=== PATIENT | female | born 2000 | race Caucasian/White ===

== ENCOUNTER 2022-11-29 19:24 | Outpatient (OUT) | payer BC, SELFPAY ==
[2022-12-04 14:20] LABS: Age Gdln ACOG Testing Note (.); IGP, rfx Aptima HPV ASCU Note (.)
== END 2022-11-29 19:25 | disposition home or self-care (01) ==
PROVIDERS: PCP Family Medicine; Visit Provider Physician Assistant
DX: Z12.4 Encounter for screening for malignant neoplasm of cervix (principal); Z11.51 Encounter for screening for human papillomavirus (HPV)
CPT/HCPCS: G0145

== ENCOUNTER 2023-01-25 10:33 | Outpatient (OUT) | payer BC, SELFPAY ==
--- NOTE | 2023-01-25 10:37 | US_ITS ---
[address] [address] Patient Name: INDIO DICKEY MRN: [id number] date: 2000 Sex: F Assigned Patient Location: US Current Patient Location: LAB Accession/Order Number: [id number] Exam Date: 01/25/2023 10:37 Report Date: 01/25/2023 17:43 At the request of: FADUMO THEODORE Procedure: US OB transvaginal EXAMINATION: US OB transvaginal HISTORY: MISSED MENSES COMPARISON: No relevant comparison available. FINDINGS: Transvaginal images Anechoic echogenicity within the endometrial cavity measuring 1.2 x 1.6 x 1.7 cm. Mean sac diameter of 1.51 cm, 5 weeks 6 days CRL: 2.8 mm, 5 weeks 6 days Yolk sac: 4.1 mm, elongated Cardiac activity: Not visualized Cervix: Closed, 3.9 cm The uterus is normal, anteverted, anteflexed The ovaries are normal in appearance Clinical age: 13 weeks 1 day Clinical TERESA: 08/01/2023 Ultrasound age: 5 weeks 6 days Ultrasound TERESA: 09/21/2023 US/US OB transvaginal IMPRESSION: Abnormal yolk sac with no cardiac activity. Consider early intrauterine gestation. Follow-up is recommended Electronically authenticated by: VISHAL ALBERTS Date: 01/25/2023 17:43
== END 2023-01-25 10:34 | disposition home or self-care (01) ==
LOC: US 10:34
PROVIDERS: PCP Family Medicine; Visit Provider Obstetrics & Gynecology
DX: N91.2 Amenorrhea, unspecified (principal); N92.6 Irregular menstruation, unspecified
CPT/HCPCS: 36415; 76817; 84702

== ENCOUNTER 2023-01-25 11:22 | Outpatient (RCR) | payer BC, SELFPAY ==
[2023-01-25 12:49] LABS: HCG Quantitative 30128 mIU/mL
[2023-01-28 13:48] LABS: HCG Quantitative 24190 mIU/mL
== END 2023-02-11 08:32 | disposition home or self-care (01) ==
LOC: LAB 11:22
PROVIDERS: Visit Provider Obstetrics & Gynecology
DX: N91.2 Amenorrhea, unspecified (principal)
CPT/HCPCS: 36415; 84702

== ENCOUNTER 2023-01-30 13:52 | Outpatient (OUT) | payer BC, SELFPAY ==
--- NOTE | 2023-01-30 13:55 | US_ITS ---
The [address] [address] Patient Name: INDIO DICKEY MRN: [id number] date: 2000 Sex: F Assigned Patient Location: US Current Patient Location: US Accession/Order Number: [id number] Exam Date: 01/30/2023 13:56 Report Date: 01/30/2023 15:34 At the request of: FADUMO SOLORIO Procedure: US OB transvaginal EXAMINATION: US OB transvaginal HISTORY: VIABILITY , bleeding, decreased beta hCG COMPARISON: Ultrasound OB transvaginal 01/25/2023 FINDINGS: GESTATIONAL SAC: Present YOLK SAC: Present POLE: Present CARDIAC: Absent UTERUS: Normal size and appearance. OVARIES: Right: Normal. Left: Normal. CERVIX: 4.0 cm in length and closed. CUL-DE-SAC: Normal. OTHER: None. AGE BY LMP: 13 weeks 6 days TERESA BY LMP: 08/01/2023 AGE BY US CRL: 6 weeks 0 days TERESA BY US CRL: 09/25/2023 US/US OB transvaginal IMPRESSION: 1. Intrauterine with no detectable heartbeat or interval growth; findings consistent with demise. Dr. Solorio was notified of these findings by the network cable installer at time of imaging. Electronically authenticated by: LORETTA HENRY Date: 01/30/2023 15:34
== END 2023-01-30 13:53 | disposition home or self-care (01) ==
LOC: US 13:52
PROVIDERS: Visit Provider Obstetrics & Gynecology
DX: N92.6 Irregular menstruation, unspecified (principal)
CPT/HCPCS: 76817

== ENCOUNTER 2023-02-01 07:05 | Day surgery (SDC) | payer BC, SELFPAY ==
[2023-02-01] VITALS (8 sets, daily range): BP systolic 114–134; BP diastolic 71–99; PULSE 72–106; RESP 12–18; TEMP 36.3–36.7; O2SAT 96–100; BMI 31.5
[2023-02-01] MEDS: LACTATED RINGER'S SOLUTION 1,000 ML 50 ML IV (07:31)
[2023-02-01 07:34] LABS: Basophils Percent Auto 0.4 % (0.2-2.0); Eosinophils Absolute Auto 0.1 10^3/uL (0.0-0.7); Eosinophils Percent Auto 1.3 % (0.9-7.0); Hematocrit 36.3 % (36.0-48.0); Hemoglobin 12.2 g/dL (12.0-16.0); Immature Granulocytes Abs Auto 0.04 10^3/uL (0.00-0.03); Immature Granulocytes Pct Auto 0.4 % (0.0-0.5); Lymphocytes Absolute Auto 2.8 10^3/uL (1.2-3.8); Lymphocytes Percent Auto 26.9 % (20.5-60.0); Mean Corpuscular HGB Conc 33.6 g/dL (29.9-35.2); Mean Corpuscular Volume 86.4 fL (81.0-99.0); Mean Platelet Volume 9.4 fL (9.5-13.5); Monocytes Absolute Auto 0.8 10^3/uL (0.3-0.8); Monocytes Percent Auto 7.3 % (1.7-12.0); Neutrophils Absolute Auto 6.6 10^3/uL (1.4-6.5); Neutrophils Percent Auto 63.7 % (43.0-75.0); Platelet Count 250 10^3/uL (150-450); Red Cell Distribution Width 11.9 % (11.0-15.0); White Blood Count 10.4 10^3/uL (4.0-11.0)
[2023-02-01 08:06] LABS: HCG Quantitative 21399 mIU/mL
--- NOTE | 2023-02-01 09:09 | PM.ONB ---
Brief Operative Note Date of procedure: 02/01/23 Pre-op diagnosis: missed first trimester Post-op diagnosis: same as pre-op Procedure: NAME OF PROCEDURE: [D&C suction ] PROCEDURE: The patient was taken back to the OR where she was given general anesthesia without difficulty. She was then placed in dorsal lithotomy position, prepped and draped in the normal sterile fashion. A weighted speculum was placed in the patient's vagina and the anterior lip of the cervix was identified and grasped with a single-tooth tenaculum. The patient was then gently dilated using Hegar dilators after we had sounded roughly to 10 cm. The suction curette was then tested. The suction curette was then placed in the patient's uterus and products of conception were removed using an 9-Surinamese suction curette. ?Excellent hemostasis was noted. The patient tolerated the procedure well. Sponge, lap, and needle counts were correct x 2. All instruments were then removed from the patient's vagina. The patient was taken to the Recovery Room in stable condition. ?? Anesthesia: SALVADOR Surgeon: Enoch Solorio Estimated blood loss (mL): 25 Pathology: other (products of conception) Condition: stable Disposition: PACU
--- NOTE | 2023-02-01 09:30 | PC.NURSE ---
[facility] dry; teary eyed
--- NOTE | 2023-02-01 09:33 | PC.NURSE ---
[facility] dry; remains teary eyes
[2023-02-01] MEDS: LACTATED RINGER'S SOLUTION 1,000 ML 150 ML IV (09:47)
--- NOTE | 2023-02-01 09:51 | PC.NURSE ---
[facility] dry; remains teary eyed; at bedside
== END 2023-02-01 10:07 | disposition home or self-care (01) ==
PROVIDERS: Visit Provider Obstetrics & Gynecology
PROC: (CPT 59820; principal; 2023-02-01 08:30)
DX: O02.1 Missed abortion (principal); I10 Essential (primary) hypertension; F41.9 Anxiety disorder, unspecified; F42.9 Obsessive-compulsive disorder, unspecified; Z90.49 Acquired absence of other specified parts of digestive tract
CPT/HCPCS: 59820; 36415; 84702; 85025; 86850; 86900; 86901; 88305; J2704

== ENCOUNTER 2023-07-04 12:51 | Outpatient (OUT) | payer BC, SELFPAY ==
[2023-07-04 13:40] LABS: Basophils Percent Auto 0.3 % (0.2-2.0); Eosinophils Absolute Auto 0.1 10^3/uL (0.0-0.7); Eosinophils Percent Auto 0.8 % (0.9-7.0); Hematocrit 37.1 % (36.0-48.0); Hemoglobin 12.4 g/dL (12.0-16.0); Immature Granulocytes Abs Auto 0.02 10^3/uL (0.00-0.03); Immature Granulocytes Pct Auto 0.3 % (0.0-0.5); Lymphocytes Absolute Auto 2.7 10^3/uL (1.2-3.8); Mean Corpuscular HGB Conc 33.4 g/dL (29.9-35.2); Mean Corpuscular Hemoglobin 27.9 pg (26.7-34.0); Mean Corpuscular Volume 83.6 fL (81.0-99.0); Mean Platelet Volume 9.6 fL (9.5-13.5); Monocytes Absolute Auto 0.6 10^3/uL (0.3-0.8); Monocytes Percent Auto 7.2 % (1.7-12.0); Neutrophils Absolute Auto 4.5 10^3/uL (1.4-6.5); Neutrophils Percent Auto 57.4 % (43.0-75.0); Platelet Count 257 10^3/uL (150-450); Red Blood Count 4.44 10^6/uL (4.20-5.40); Red Cell Distribution Width 12.4 % (11.0-15.0); White Blood Count 7.8 10^3/uL (4.0-11.0)
[2023-07-04 14:01] LABS: Free T3 2.31 pg/mL (2.18-3.98); Glucose 109 mg/dL (74-106); HCG Quantitative <1 mIU/mL; Thyroid Stimulating Hormone 1.204 uIU/mL (0.358-3.740)
[2023-07-04 15:13] LABS: Free T4 0.85 ng/dL (0.76-1.46)
[2023-07-04 15:19] LABS: Estimated Average Glucose 108 mg/dL; Glycohemoglobin A1C 5.4 % (4.5-6.2)
[2023-07-05 08:12] LABS: FSH 2.1 mIU/mL (.); Luteinizing Hormone(LH) 5.7 mIU/mL (.); Progesterone 4.1 ng/mL (.)
[2023-07-05 11:10] LABS: Insulin 39.1 uIU/mL (2.6-24.9)
[2023-07-05 16:09] LABS: Thyroglobulin Antibody <1.0 IU/mL (0.0-0.9); Thyroid Peroxidase (TPO) Ab 12 IU/mL (0-34)
[2023-07-09 16:09] LABS: Estrone, Serum 183 pg/mL (27-231)
[2023-07-10 00:07] LABS: Reverse T3, Serum 21.8 ng/dL (9.2-24.1)
[2023-07-10 05:08] LABS: DHEA, Serum 412 ng/dL (31-701)
[2023-07-10 08:12] LABS: Free Testosterone(Direct) 2.8 pg/mL (0.0-4.2); Testosterone 61 ng/dL (13-71)
[2023-07-11 06:09] LABS: Serotonin, Serum <5 ng/mL (31-207)
[2023-07-11 18:10] LABS: Cortisol, Free Dialysis, LCMS 0.374 ug/dL (.)
== END 2023-07-04 12:52 | disposition home or self-care (01) ==
LOC: LAB 12:52
PROVIDERS: Visit Provider Obstetrics & Gynecology
DX: E34.9 Endocrine disorder, unspecified (principal); E28.2 Polycystic ovarian syndrome
CPT/HCPCS: 36415; 82530; 82626; 82627; 82652; 82670; 82679; 82728; 82947; 83001; 83002; 83036; 83525; 84144; 84260; 84270; 84402; 84403; 84432; 84436; 84439; 84443; 84481; 84482; 84681; 84702; 85025; 86376; 86800

== ENCOUNTER 2024-07-01 21:49 | Outpatient (REF) | payer BC, SELFPAY ==
--- OUTSIDE RECORDS SUMMARY | 2024-07-01 21:53 | XMS_ITS | CCD ---
Author Organization [facility] Inform ion Partnership [facility] Care Team Providers Care Medical Staff Manager Name Role Phone Andreas RIP SAW OPERATOR - SAW STRAIGHTENERCarlos Primary Care [facility] ider ALONSO SYKES Attending Unavailable CARLOS EISENBERG Primary Care Unavailable CARLOS EISENBERG Primary Care Unavailable MONTSERRAT ARIAS Consulting Unavailable LYNDON, DR JOE Sprague Admitting Unavailabl e EDWINECK, DR JOE Sprague Attending Unavailabl e CARLOS EISENBERG Admitting Unavailable CARLOS EISENBERG Attending Unavailable CARLOS EISENBERG Primary Care Unavailable CARLOS EISENBERG Consulting Unavailable TARYN, DR BONILLA Admitting Unavailable TARYN, DR BONILLA Attending Unavailable MISC, DR MORTON Primary Care Unavailable TARYN, DR BONILLA Consulting Unavailable CONGC, DR MORTON Primary Care Unavailable LEANDRO, DR NOVAK Admitting Unavailable LEANDRO, DR NOVAK Attending Unavailable LEANDRO, DR NOVAK Consulting Unavailable Chelo Harley Unavailable Provider, None Primary Care Unavailable Provider, None Primary Care Unavailable Castro Eddy Attending Unavailable Castro Eddy Admitting Unavailable Ramona Bowles MD Primary Care Provider Ag CLINICAL SYSTEMS ANALYST, Keli Unavailable Ramona Bowles MD Unavailable [phone] Ag CLINICAL SYSTEMS ANALYST, Keli Unavailable CAROLE ROCA Attending Unavailable KELI LUONG Attending Unavailable ENOCH SOLORIO Attending Unavailable KELI LUONG Attending Unavailable KELI LUONG Attending Unavailable RUBY MARK Attending Unavailable KELI LUONG Attending Unavailable AG, KELI Attending Unavailable ENOCH SOLORIO Attending Unavailable Ramona Bowles MD Unavailable [phone] BHARATHI, NABIL Attending Unavailable KAMPFER, KELI A Referring Unavailable KAMPFER, KELI A Primary Care Unavailable BHARATHI, NABIL Attending Unavailable KAMPFER, KELI A Referring Unavailable KAMPFER, KELI A Primary Care Unavailable BHARATHI, NABIL Attending Unavailable KAMPFER, KELI A Referring Unavailable KAMPFER, KELI A Primary Care Unavailable BHARATHI, NABIL Attending Unavailable KAMPFER, KELI A Referring Unavailable KAMPFER, KELI A Primary Care Unavailable BHARATHI, NABIL Attending Unavailable KAMPFER, KELI A Referring Unavailable KAMPFER, KELI A Primary Care Unavailable BHARATHI, NABIL Attending Unavailable KAMPFER, KELI A Referring Unavailable KAMPFER, KELI A Primary Care Unavailable BHARATHI, NABIL Attending Unavailable KAMPFER, KELI A Referring Unavailable KAMPFER, KELI A Primary Care Unavailable BHARATHI, NABIL Attending Unavailable KAMPFER, KELI A Referring Unavailable KAMPFER, KELI A Primary Care Unavailable BHARATHI, NABIL Attending Unavailable KAMPFER, KELI A Referring Unavailable KAMPFER, KELI A Primary Care Unavailable BHARATHI, NABIL Attending Unavailable KAMPFER, KELI A Referring Unavailable KAMPFER, KELI A Primary Care Unavailable BHARATHI, NABIL Attending Unavailable KAMPFER, KELI A Referring Unavailable KAMPFER, KELI A Primary Care Unavailable BHARATHI, NABIL Referring Unavailable KAMPFER, KELI A Primary Care Unavailable BHARATHI, NABIL Attending Unavailable KAMPFER, KELI A Referring Unavailable KAMPFER, KELI A Primary Care Unavailable KAMPFER, KELI A Referring Unavailable KAMPFER, KELI A Primary Care Unavailable Allergies Allergy Classification Reported Allergen(s) Allergy Type Date of Onset Reaction(s) Facility Cephalosporins (antibiotic) (1 source) Cephalexin Drug Allergy 05-20-19 [facility] Phone: Sulfamethoxazole / Trimethoprim (1 source) Sulfamethoxazole / Trimethoprim Drug Allergy 05-20-19 [facility] Phone: Sulfonamides (antibiotic) (1 source) Sulfonamides (Antibiotic) Drug Allergy 05-20-19 [facility] Phone: (1 source) Cephalexin Drug Allergy [facility] (1 source) Penicillin Drug Allergy [facility] (1 source) Sulfamethoxazole / Trimethoprim Drug Allergy [facility] (1 source) Sulfonamides (Antibiotic) Drug allergy (disorder) [facility] (20 sources) Cephalexin; Translations: [CEPHALEXIN] Drug Allergy 05-21-19 [facility] (20 sources) Sulfamethoxazole / Trimethoprim Drug Allergy 10-03-19 23 [facility] Work Phone: (20 sources) buPROPion; Translations: [BUPROPION] Drug Allergy 11-01-19 [facility] Work Phone: (20 sources) Penicillins; Translations: [PENICILLINS] Propensity to adverse reactions 12-19-19 18 [facility] (20 sources) Sulfonamides (Antibiotic) Drug Intolerance 05-21-19 [facility] (1 source) Sulfamethoxazole / Trimethoprim; Translations: [SULFAMETHOXAZOLE-T RIMETHOPRIM] Drug Allergy 05-21-19 [facility] (1 source) Sulfonamides (Antibiotic); Translations: [SULFA (SULFONAMIDE ANTIBIOTICS)] Propensity to adverse reactions to drug (disorder) 05-21-19 [facility] Medications Current Medications Medication Drug Class(es) Dates Sig (Normalized) Sig (Original) ALPRAZolam 0.25 mg oral tablet (20 sources) Benzodiazepine Start: 10-15-2022 ALPRAZolam (Xanax) 0.25 MG tablet Take 0.25 mg by mouth as needed at bedtime. 10/15/2022 Active busPIRone hydrochloride 10 mg oral tablet (20 sources) Start: 10-10-2022 take 1 tablet by mouth in the morning, then take 1 tablet by mouth in the evening, then take 1 tablet by mouth at bedtime busPIRone (Buspar) 10 MG tablet Take 10 mg by mouth in the morning and 10 mg in the evening and 10 mg before bedtime. 10/10/2022 Active Start: 10-10-2022 take 1 tablet by yady th in the morning, then take 1 tablet by mouth in the evening, then take 1 tablet by mouth at bedtime busPIRone (Buspar) 7.5 MG tablet Take 7.5 mg by mouth in the morning and 7.5 mg in the evening and 7.5 mg before bedtime. 10/10/2022 Active take 1 tablet by yady th twice daily busPIRone (BUSPAR) 10 MG tablet Take 10 mg by mouth 2 times daily 0 Active ciprofloxacin 3 mg/ml ophthalmic solution (1 source) Quinolone Antimicrobial Start: 05-12-2021 FLUoxetine 20 mg oral capsule (1 source) Serotonin Reuptake Inhibitor take 1 capsule by mouth once daily FLUoxetine (PROZAC) 20 MG capsule Take 20 mg by mouth daily 0 Active lamoTRIgine 25 mg oral tablet (15 sources) Mood Stabilizer, Anti-epileptic Agent Start: 02-12-2024 take 2 tablets by mouth in the morning lamoTRIgine (LaMICtal) 25 MG tablet Take 50 mg by mouth in the morning. 02/12/2024 Active Start: 02-12-2024 take 1 tablet by yady th in the morning lamoTRIgine (LaMICtal) 25 MG tablet Take 25 mg by mouth in the morning. 02/12/2024 Active loperamide hydrochloride 2 mg oral capsule (1 source) Opioid Agonist Start: 11-19-2020 End: 11-29-2020 take 1 capsule by mouth four times daily as needed for diarrhea loperamide (RA ANTI-DIARRHEAL) 2 MG capsule Take 1 capsule by mouth 4 times daily as needed for Diarrhea 12 capsule 0 11/19/2020 11/29/2020 Active metFORMIN hydrochloride 500 mg oral tablet (20 sources) Biguanide Start: 08-01-2023 End: 07-31-2024 take 1 tablet by mouth at mealtime metFORMIN (Glucophage) 500 MG tablet Indications: Hormone disorder , PCOS (polycystic ovarian syndrome) , Amenorrhea Take 1 tablet (500 mg) by mouth in the morning. Take with meals. 30 tablet 11 08/01/2023 07/31/2024 Active metroNIDAZOLE 500 mg oral tablet (3 sources) Nitroimidazole Antimicrobial Start: 05-01-2024 End: 05-08-2024 take 1 tablet by mouth in the morning metroNIDAZOLE (Flagyl) 500 MG tablet Indications: BV (bacterial vaginosis) Take 1 tablet (500 mg) by mouth in the morning and 1 tablet (500 mg) before bedtime. Do all this for 7 days. Do not drink alcohol while taking this medication. 14 tablet 05/01/2024 05/08/2024 Active nitrofurantoin, macrocrystals 25 mg / nitrofurantoin, monohydrate 75 mg oral capsule (2 sources) Nitrofuran Antibacterial Start: 02-13-2024 End: 02-20-2024 take 1 capsule by mouth in the morning nitrofurantoin, macrocrystal-monohy drate, (Macrobid) 100 MG capsule Indications: Urinary tract infection without hematuria, site unspecified Take 1 capsule (100 mg) by mouth in the morning and 1 capsule (100 mg) before bedtime. Do all this for 7 days. 14 capsule 02/13/2024 02/20/2024 Active ondansetron 4 mg disintegrating oral tablet (1 source) Serotonin-3 Receptor Antagonist Start: 05-20-2017 take 1 tablet by mouth every four hours as needed for nausea ondansetron (ZOFRAN ODT) 4 MG disintegrating tablet Take 1 tablet by mouth every 4 hours as needed for Nausea or Vomiting 12 tablet 0 05/20/2017 Active 24 hr propranolol hydrochloride 80 mg extended release oral capsule (20 sources) beta-Adrenergic Gregory Start: 04-20-2024 take 1 capsule by mouth once daily propranolol LA (Inderal LA) 80 MG 24 hr capsule Indications: Primary hypertension (CMS/HCC) TAKE 1 CAPSULE (80 MG) BY MOUTH DAILY DO NOT CRUSH, CHEW, OR SPLIT. 90 capsule 04/20/2024 Active Start: 03-23-2024 take 1 capsule by mo uth once daily propranolol LA (Inderal LA) 80 MG 24 hr capsule Indications: Primary hypertension (CMS/HCC) Take 1 capsule (80 mg) by mouth Daily Do not crush, chew, or split. 30 capsule 1 03/23/2024 Active Start: 10-02-2023 End: 03-23-2024 take 1 capsule by mouth every twenty-four hours in the morning propranolol LA (Inderal LA) 60 MG 24 hr capsule Indications: Primary hypertension (CMS/HCC) TAKE 1 CAPSULE (60 MG) BY MOUTH IN THE MORNING DO NOT CRUSH,CHEW,OR SPIT 90 capsule 1 10/02/2023 03/23/2024 Discontinued (Dose adjustment) vilazodone hydrochloride 20 mg oral tablet (20 sources) Start: 12-20-2022 take 1 tablet by mouth once daily vilazodone (Viibryd) 20 MG tablet Take 20 mg by mouth Daily 12/20/2022 Active Start: 12-20-2022 vilazodone (Vi ibryd) 20 MG tablet Take 30 mg by mouth in the morning. 12/20/2022 Active Completed/Discontinued Medications Medication Drug Class(es) Dates Sig (Normalized) Sig (Original) fluvoxaMINE maleate 50 mg oral tablet (3 sources) Serotonin Reuptake Inhibitor Start: 08-13-2023 End: 01-07-2024 take 1 tablet by mouth at bedtime fluvoxaMINE (Luvox) 50 MG tablet Take 50 mg by mouth at bedtime 08/13/2023 01/07/2024 Discontinued Problems Active Problems Problem Classification Problem Date Documented Da te Episodic/Chronic Anxiety disorders (20 sources) Obsessive-compulsi ve disorder; Translations: [Obsessive-compuls nae disorder, unspecified] Onset: 10-31-2022 10-31-2022 Chronic Essential hypertension (20 sources) Essential hypertension; Translations: [Essential (primary) hypertension] Onset: 10-31-2022 10-31-2022 Chronic Fever of unknown origin (2 sources) Fever; Translations: [Fever, unspecified] 04-06-2024 Episodic Genitourinary symptoms and ill-defined conditions (3 sources) Personal history of urinary (tract) infections; Translations: [Dysuria] Onset: 03-10-2021 02-13-2024 Episodic Headache; including migraine (2 sources) Headache; Translations: [Nonintractable headache, unspecified chronicity pattern, unspecified headache type] 03-23-2024 Episodic Menstrual disorders (20 sources) Missed period; Translations: [Irregular menstruation, unspecified] Onset: 07-04-2023 07-04-2023 Chronic Mood disorders (20 sources) Bipolar II disorder; Translations: [Bipolar II disorder] Onset: 09-02-2023 09-09-2023 Chronic Other endocrine disorders (20 sources) Polycystic ovary syndrome; Translations: [Polycystic ovarian syndrome] Onset: 07-04-2023 07-04-2023 Chronic Other gastrointestinal disorders (1 source) Diarrhea; Translations: [Diarrhea, unspecified] Episodic Other liver diseases (1 source) Abnormal levels of other serum enzymes; Translations: [Abnormal levels of other serum enzymes] Onset: 06-23-2024 Episodic Other nutritional; endocrine; and metabolic disorders (2 sources) Obesity caused by energy imbalance; Translations: [Morbid (severe) obesity due to excess calories] 03-23-2024 Chronic Other nutritional; endocrine; and metabolic disorders (2 sources) Body mass index 30+ - obesity; Translations: [Body mass index (BMI) 35.0-35.9, adult] 03-23-2024 Chronic Other nutritional; endocrine; and metabolic disorders (2 sources) Weight increased; Translations: [Abnormal weight gain] 04-08-2024 Episodic Other screening for suspected conditions (not mental disorders or infectious disease) (4 sources) Patient encounter status; Translations: [Encounter for screening for lipoid disorders] 01-08-2024 Episodic Other upper respiratory infections (2 sources) Viral upper respiratory tract infection; Translations: [Acute upper respiratory infection, unspecified] 04-06-2024 Episodic Urinary tract infections (2 sources) Urinary tract infectious disease; Translations: [Urinary tract infection, site not specified] 02-13-2024 Episodic Past or Other Problems Problem Classification Problem Date Documented Da te Episodic/Chronic Abdominal pain (2 sources) Lower abdominal pain; Translations: [Lower abdominal pain, unspecified] Onset: 03-10-2021 Episodic Conditions associated with dizziness or vertigo (4 sources) Dizziness and giddiness; Translations: [DIZZINESS AND GIDDINESS] Onset: 01-17-2021 Episodic Inflammatory diseases of female pelvic organs (1 source) Acute vaginitis; Translations: [ACUTE VAGINITIS] Onset: 10-03-2020 Episodic Mood disorders (20 sources) Mood disorders Onset: 06-04-2023 Resolved: 03-23-2024 06-04-2023 Nausea and vomiting (2 sources) Nausea; Translations: [Nausea] Onset: 03-10-2021 Episodic Nonmalignant breast conditions (4 sources) Nipple discharge; Translations: [NIPPLE DISCHARGE] Onset: 03-08-2021 Episodic Other endocrine disorders (20 sources) Disorder of endocrine system; Translations: [Endocrine disorder, unspecified] Onset: 07-04-2023 07-04-2023 Episodic Other eye disorders (1 source) Other specified disorders of eye and adnexa Onset: 05-12-2021 Resolved: 05-12-2021 Episodic Other female genital disorders (3 sources) Other specified noninflammatory disorders of vagina; Translations: [OTH SPEC NONINFLAMMATORY D/O VAGINA] Onset: 09-29-2020 Episodic Other gastrointestinal disorders (3 sources) Other fecal abnormalities; Translations: [OTHER FECAL ABNORMALITIES] Onset: 03-09-2021 Episodic Other injuries and conditions due to external causes (1 source) Unspecified injury of left eye and orbit, initial encounter Onset: 05-12-2021 Resolved: 05-12-2021 Episodic Residual codes; unclassified (1 source) Acquired absence of other specified parts of digestive tract; Translations: [ACQ ABSENCE OTH PART DIGESTV TRACT] Onset: 03-10-2021 Episodic Residual codes; unclassified (1 source) Other general symptoms and signs; Translations: [OTHER GENERAL SYMPTOMS AND SIGNS] Onset: 01-30-2021 Episodic Results Test Name Value Interpretation Reference Range Facility ALT No additional P-5'-P [Ca talytic activity/Vol]on 06-23-2024 ALT [Catalytic activity/Vol] 42 U/L High 0-31 [facility] Comment on above: Performed By: #### 1 744-2, 1919-12 #### [facility] ([id number]) [address] [place] [address] ALT [Catalytic activity/Vol] on 06-23-2024 ALT No additional P-5'-P [Catalytic activity/Vol] 42 U/L High 0 - 31 U/L [facility] Comment on above: PERFORMED AT [address] SUITE [facility],[place] [address] Interpretation and review of laboratory results Abnormal [facility] Julian 06-23-2024 AST [Catalytic activity/Vol] 27 U/L 0 - 41 U/L [facility] Comment on above: PERFORMED AT [address],[place] [address] AST [Catalytic activity/Vol] 27 U/L Normal 0-41 [facility] Comment on above: Performed By: #### C BCA, CMP, FEPR, 00770-8, THYR, 2132-9, HA1C, 2284-8, 79479-5 #### [facility] ([id number]) [address] [place] [address] No Panel Informationon 06-23 [facility] CBC AND AUTO DIFFon 04-13-20 ABSOLUTE BASOPHIL 0.0 X10E9/L Normal 0.0-0.2 [facility] Comment on above: Performed By: #### C BCA, CMP, FEPR, 29806-5, THYR, 2132-01, HA1C, 4-8, 87444-4 #### [facility] ([id number]) [address], [address] [place] [address] ABSOLUTE NEUTROPHIL 5.7 X10E9/L Normal 1.5-6.6 [facility] Comment on above: Performed By: #### C BCA, CMP, FEPR, 55375-0, THYR, 2132-01, HA1C, 4-8, 62003-1 #### [facility] ([id number]) [address], [address] [place] [address] Basophils/100 WBC (Bld) 0.4 % Normal [facility] Comment on above: Performed By: #### C BCA, CMP, FEPR, 41545-2, THYR, 2132-01, HA1C, 4-8, 80052-4 #### [facility] ([id number]) [address], [address] [place] [address] Eosinophils (Bld) [#/Vol] 0.2 10*3/uL Normal 0.0-0.4 [facility] Comment on above: Performed By: #### C BCA, CMP, FEPR, 35436-3, THYR, 2132-01, HA1C, 2284-8, 27784-8 #### [facility] ([id number]) [address], [address] [place] [address] Eosinophils/100 WBC (Bld) 2.1 % Normal [facility] Comment on above: Performed By: #### C BCA, CMP, FEPR, 12720-9, THYR, 9, HA1C, 2284-8, 70889-7 #### [facility] ([id number]) [address], [address] [place] [address] Erythrocyte distribution width (RBC) [Ratio] 13.4 % Normal 11.5-15.0 [facility] Comment on above: Performed By: #### C BCA, CMP, FEPR, 02390-2, THYR, 9, HA1C, 4-8, 99624-7 #### [facility] ([id number]) [address] [place] [address] Hematocrit (Bld) [Volume fraction] 38.6 % Normal 35-47 [facility] Comment on above: Performed By: #### C BCA, CMP, FEPR, 14187-8, THYR, 9, HA1C, 4-8, 94956-4 #### [facility] ([id number]) [address] [place] [address] Hemoglobin (Bld) [Mass/Vol] 13.6 g/dL Normal 11.7-15.5 [facility] Comment on above: Performed By: #### C BCA, CMP, FEPR, 73555-3, THYR, 9, HA1C, 2284-8, 29492-8 #### [facility] ([id number]) [address], [address] [place] [address] Lymphocytes (Bld) [#/Vol] 2.7 10*3/uL Normal 1.0-3.5 [facility] Comment on above: Performed By: #### C BCA, CMP, FEPR, 21086-6, THYR, 9, HA1C, 2284-8, 66027-3 #### [facility] ([id number]) [address] [place] [address] Lymphocytes/100 WBC (Bld) 29.9 % Normal [facility] Comment on above: Performed By: #### C BCA, CMP, FEPR, 38227-9, THYR, 9, HA1C, 4-8, 46687-0 #### [facility] ([id number]) [address], [address] [place] [address] MCH (RBC) [Entitic mass] 29.3 pg Normal 27-34 [facility] Comment on above: Performed By: #### C BCA, CMP, FEPR, 72890-9, THYR, 2132-01, HA1C, 4-8, 67972-7 #### [facility] ([id number]) [address], [address] [place] [address] MCHC (RBC) [Mass/Vol] 35.4 g/dL Normal 32-36 [facility] Comment on above: Performed By: #### C BCA, CMP, FEPR, 30613-3, THYR, 2132-01, HA1C, 2283-, 98035-4 #### [facility] ([id number]) [address], [address] [place] [address] MCV (RBC) [Entitic vol] 83 fL Normal 80-100 [facility] Comment on above: Performed By: #### C BCA, CMP, FEPR, 51917-8, THYR, 2132-01, HA1C, 2283-, 50153-4 #### [facility] ([id number]) [address], [address] [place] [address] Monocytes (Bld) [#/Vol] 0.5 10*3/uL Normal 0-0.9 [facility] Comment on above: Performed By: #### C BCA, CMP, FEPR, 28819-6, THYR, 2132-01, HA1C, 4-8, 03529-7 #### [facility] ([id number]) [address], [address] [place] [address] Monocytes/100 WBC (Bld) 5.7 % Normal [facility] Comment on above: Performed By: #### C BCA, CMP, FEPR, 35637-3, THYR, 2132-9, HA1C, 2284-8, 03602-3 #### [facility] ([id number]) [address], [address] [place] [address] Neutrophils/100 WBC (Bld) 61.9 % Normal [facility] Comment on above: Performed By: #### C BCA, CMP, FEPR, 96838-5, THYR, 2132-9, HA1C, 2284-8, 29647-6 #### [facility] ([id number]) [address], [address] [place] [address] Platelet mean volume (Bld) [Entitic vol] 7.3 fL Normal 7-12 [facility] Comment on above: Performed By: #### C BCA, CMP, FEPR, 48352-8, THYR, 2131-9, HA1C, 2284-8, 39582-3 #### [facility] ([id number]) [address] [place] [address] Platelets (Bld) [#/Vol] 373 10*3/uL Normal 150-450 [facility] Comment on above: Performed By: #### C BCA, CMP, FEPR, 62106-8, THYR, 2131-9, HA1C, 2284-8, 82761-0 #### [facility] ([id number]) [address], [address] [place] [address] RBC COUNT 4.65 X10E12/L Normal 3.80-5.20 [facility] Comment on above: Performed By: #### C BCA, CMP, FEPR, 88812-2, THYR, 2132-9, HA1C, 2284-8, 87064-0 #### [facility] ([id number]) [address], [address] [place] [address] WBC (Bld) [#/Vol] 9.2 10*3/uL Normal 4.0-11.0 [facility] Comment on above: Performed By: #### C BCA, CMP, FEPR, 33545-0, THYR, 2131-9, HA1C, 2284-8, 03435-9 #### [facility] ([id number]) [address], [address] [place] [address] COMPREHENSIVE METABOLIC PANE Maykel 04-13-2024 Albumin [Mass/Vol] 4.3 g/dL Normal 3.2-5.3 [facility] Comment on above: Performed By: #### C BCA, CMP, FEPR, 47168-0, THYR, 2131-9, HA1C, 2284-8, 36291-7 #### [facility] ([id number]) [address], [address] [place] [address] ALP [Catalytic activity/Vol] 48 U/L Normal 39-130 [facility] Comment on above: Performed By: #### C BCA, CMP, FEPR, 13710-5, THYR, 2131-9, HA1C, 2284-8, 24322-6 #### [facility] ([id number]) [address], [address] [place] [address] ALT [Catalytic activity/Vol] 35 U/L High 0-31 [facility] Comment on above: Performed By: #### C BCA, CMP, FEPR, 55135-8, THYR, 2131-9, HA1C, 2284-8, 42727-5 #### [facility] ([id number]) [address], [address] [place] [address] Anion gap [Moles/Vol] 14 mmol/L Normal 5-15 [facility] Comment on above: Performed By: #### C BCA, CMP, FEPR, 39064-2, THYR, 2131-9, HA1C, 2284-8, 73403-0 #### [facility] ([id number]) [address], [address] [place] [address] AST [Catalytic activity/Vol] 28 U/L Normal 0-41 [facility] Comment on above: Performed By: #### C BCA, CMP, FEPR, 89594-5, THYR, 9, HA1C, 4-8, 36076-8 #### [facility] ([id number]) [address], [address] [place] [address] Bilirubin [Mass/Vol] 0.5 mg/dL Normal 0.3-1.2 [facility] Comment on above: Performed By: #### C BCA, CMP, FEPR, 50052-2, THYR, 9, HA1C, 2283-8, 74392-4 #### [facility] ([id number]) [address], [address] [place] [address] Calcium [Mass/Vol] 9.2 mg/dL Normal 8.5-10.5 [facility] Comment on above: Performed By: #### C BCA, CMP, FEPR, 92843-1, THYR, 2132-01, HA1C, 2283-8, 64129-9 #### [facility] ([id number]) [address], [address] [place] [address] Chloride [Moles/Vol] 104 mmol/L Normal 98-109 [facility] Comment on above: Performed By: #### C BCA, CMP, FEPR, 69274-3, THYR, 9, HA1C, 4-8, 48864-7 #### [facility] ([id number]) [address], [address] [place] [address] CO2 [Moles/Vol] 24 mmol/L Normal 22-32 [facility] Comment on above: Performed By: #### C BCA, CMP, FEPR, 22633-0, THYR, 2132-9, HA1C, 2284-8, 98374-6 #### [facility] ([id number]) [address], [address] [place] [address] Creatinine [Mass/Vol] 0.81 mg/dL Normal 0.40-1.00 [facility] Comment on above: Result Comment: METH OD TRACEABLE TO IDMS STANDARD Performed By: #### C BCA, CMP, FEPR, 00806-6, THYR, 9, HA1C, 4-8, 86722-7 #### [facility] ([id number]) [address], [address] [place] [address] eGFR (CKD-EPI) NON-RACE DEPENDENT >90 Normal >59 [facility] Comment on above: Result Comment: Reported eGFR is based on the CKD-EPI 2020 equation that does not use a race coefficient. Performed By: #### C BCA, CMP, FEPR, 91845-4, THYR, 2132-01, HA1C, 4-8, 04811-8 #### [facility] ([id number]) [address], [address] [place] [address] Glucose [Mass/Vol] 88 mg/dL Normal 65-99 [facility] Comment on above: Performed By: #### C BCA, CMP, FEPR, 57148-9, THYR, 2132-01, HA1C, 2284-8, 23257-0 #### [facility] ([id number]) [address], [address] [place] [address] Potassium [Moles/Vol] 3.5 mmol/L Normal 3.5-5.0 [facility] Comment on above: Performed By: #### C BCA, CMP, FEPR, 69796-3, THYR, 9, HA1C, 2284-8, 76146-8 #### [facility] ([id number]) [address], [address] [place] [address] Protein [Mass/Vol] 6.9 g/dL Normal 6.0-8.0 [facility] Comment on above: Performed By: #### C BCA, CMP, FEPR, 10390-6, THYR, 2132-01, HA1C, 4-8, 63595-9 #### [facility] ([id number]) [address], [address] [place] [address] Sodium [Moles/Vol] 142 mmol/L Normal 134-146 [facility] Comment on above: Performed By: #### C BCA, CMP, FEPR, 90265-2, THYR, 2132-01, HA1C, 4-8, 39324-0 #### [facility] ([id number]) [address], [address] [place] [address] Urea nitrogen [Mass/Vol] 11 mg/dL Normal 5-23 [facility] Comment on above: Performed By: #### C BCA, CMP, FEPR, 09265-4, THYR, 2132-01, HA1C, 2283-8, 34522-3 #### [facility] ([id number]) [address], [address] [place] [address] Folate [Mass/Vol]on 04-13-20 24 FOLIC ACID 18.4 ng/mL Normal >5.8 [facility] Comment on above: Result Comment: NEW REFERENCE RANGE Performed By: #### C BCA, CMP, FEPR, 86761-0, THYR, 2132-01, HA1C, 4-8, 22758-4 #### [facility] ([id number]) [address], [address] [place] [address] HGB A1C (GLYCO-HGB)on 2023 Glucose [Mass/Vol] 117 mg/dL Normal [facility] Comment on above: Performed By: #### C BCA, CMP, FEPR, 87942-9, THYR, 9, HA1C, 2284-8, 34582-0 #### [facility] ([id number]) [address], [address] [place] [address] HbA1c (Bld) [Mass fraction] 5.7 % High 4.4-5.6 [facility] Comment on above: Result Comment: NOTE ADA Guidelines Result HgbA1c Normal : less than 5.7 % Prediabetes : 5.7 % to 6.4 % Diabetes : > 6.4 % Use with caution in patients with abnormal hemoglobin variants as the half-life of red blood cells and in vivo glycation rates are affected. Performed By: #### C BCA, CMP, FEPR, 21986-6, THYR, 2131-9, HA1C, 2284-8, 35296-4 #### [facility] ([id number]) [address], [address] [place] [address] IRON PROFILEon 04-13-2024 Iron [Mass/Vol] 66 ug/dL Normal 50-170 [facility] Comment on above: Performed By: #### C BCA, CMP, FEPR, 09449-4, THYR, 2131-9, HA1C, 2284-8, 47875-7 #### [facility] ([id number]) [address], [address] [place] [address] IRON BINDING 378 ug/dL Normal 250-425 [facility] Comment on above: Performed By: #### C BCA, CMP, FEPR, 92554-8, THYR, 2-9, HA1C, 2284-8, 30075-4 #### [facility] ([id number]) [address], [address] [place] [address] IRON SATURATION 17 % SATURATION Normal 15-50 [facility] Comment on above: Performed By: #### C BCA, CMP, FEPR, 15622-3, THYR, 2132-9, HA1C, 2284-8, 51528-8 #### [facility] ([id number]) [address], [address] [place] [address] Lipid 1996 panelon 4 Cholesterol [Mass/Vol] 171 mg/dL Normal 150-200 [facility] Comment on above: Performed By: #### C BCA, CMP, FEPR, 08486-9, THYR, 2132-9, HA1C, 2284-8, 19334-0 #### [facility] ([id number]) [address], [address] [place] [address] Cholesterol in HDL [Mass/Vol] 36 mg/dL Low >39 [facility] Comment on above: Result Comment: HDL <40 mg/dL - High Risk HDL > or = 40mg/dL- Desirable HDL >60 mg/dL - Negative Risk Performed By: #### C BCA, CMP, FEPR, 69276-1, THYR, 2131-9, HA1C, 2284-8, 40287-2 #### [facility] ([id number]) [address], [address] [place] [address] Cholesterol in LDL [Mass/Vol] 106 mg/dL Normal <130 [facility] Comment on above: Result Comment: LDL <100 mg/dL - Desirable LDL >160 mg/dL - High Risk Performed By: #### C BCA, CMP, FEPR, 52294-4, THYR, 2132-9, HA1C, 2284-8, 55351-3 #### [facility] ([id number]) [address], [address] [place] [address] Cholesterol in VLDL [Mass/Vol] 29 mg/dL Normal 0-30 [facility] Comment on above: Performed By: #### C BCA, CMP, FEPR, 67654-7, THYR, 9, HA1C, 2284-8, 28910-3 #### [facility] ([id number]) [address], [address] [place] [address] CHOLESTEROL:HDL 4.8 Normal 1.0-5.0 [facility] Comment on above: Performed By: #### C BCA, CMP, FEPR, 39875-3, THYR, 2132-01, HA1C, 4-8, 87715-6 #### [facility] ([id number]) [address], [address] [place] [address] Triglyceride [Mass/Vol] 145 mg/dL Normal 27-150 [facility] Comment on above: Performed By: #### C BCA, CMP, FEPR, 83631-9, THYR, 2132-01, HA1C, 2283-8, 74781-6 #### [facility] ([id number]) [address], [address] [place] [address] THYROID PROFILEon 04-13-2024 Free T4 [Mass/Vol] 0.93 ng/dL Normal 0.61-1.60 [facility] Comment on above: Performed By: #### C BCA, CMP, FEPR, 92525-7, THYR, 2132-01, HA1C, 4-8, 96569-7 #### [facility] ([id number]) [address], [address] [place] [address] TSH 1.17 uIU/mL Normal 0.49-4.67 [facility] Comment on above: Performed By: #### C BCA, CMP, FEPR, 76627-8, THYR, 2132-01, HA1C, 2284-8, 32370-0 #### [facility] ([id number]) [address], [address] [place] [address] VITAMIN B12on 04-13-2024 Cobalamin (Vitamin B12) [Mass/Vol] 712 pg/mL Normal 180-914 [facility] Comment on above: Performed By: #### C BCA, CMP, FEPR, 02815-4, THYR, 2132-01, HA1C, 2283-8, 01794-3 #### [facility] ([id number]) [address], [address] [place] [address] Vitamin D+Metabolites [Mass/ Vol]on 04-13-2024 VITAMIN D 25 HYD TOT 29.4 ng/mL Low 30-100 [facility] Comment on above: Result Comment: Vitamin D status 25 [place] Vitamin D Deficiency <20 ng/mL Insufficiency 20-29 ng/mL Sufficiency 30-100 ng/mL Toxicity >100 ng/mL NOTE: A pediatric reference range has not been established by the emergency planner of this kit. The [place] [employer] recommends a Vitamin D level of = or >20ng/mL in infants and children. Performed By: #### C BCA, CMP, FEPR, 95750-1, THYR, 2132-01, HA1C, 2283-8, 69436-3 #### [facility] ([id number]) [address], [address] [place] [address] Laboratory - Microbiology an d Antimicrobial susceptibilityon 04-06-2024 SARS-CoV-2 (COVID-19) RNA RG+probe Ql (Unsp spec) - [facility] No Panel Informationon 04-06 FLU A - [facility] FLU B - [facility] Interpretation and review of laboratory results Normal [facility] HCG ( test) Ql (U)o n 02-13-2024 Preg Test, Ur Negative [facility] Urinalysis macro (dipstick) panel (U)on 02-13-2024 Bilirubin, UA Negative Negative - 4(70) +++ mg/dL [facility] Blood, UA Negative Negative - 50 Khris/mcL [facility] Clarity, UA Clear [facility] Color, UA Yellow [facility] Glucose, UA Negative Negative - 1999(110) ++++ mg/dL [facility] Interpretation and review of laboratory results Abnormal [facility] Ketones, UA Negative Negative - 160(16) ++++ mg/dL [facility] Leukocytes, UA Positive Negative - 500+++ Octaviano/mcL [facility] Nitrite, UA Negative Negative - Positive [facility] pH, UA 5.0 5 - 9 [facility] Protein, UA Positive Negative - 1999(20) ++++ mg/dL [facility] Spec Grav, UA 1.025 1 - 1.03 [facility] Urobilinogen, UA 0.2 0.2 - 12 mg/dL [facility] Consent Formson 05-01-2022 Consent Forms [id number] #1.00OTGTIFF Normal [facility] QuantiFERON-TB Gold Pluson 1 05-31-2021 QuantiFERON Incubation Incubation performed. Invalid Interpretation Code [facility] Comment on above: Result Comment: Perf ormed At: [address] [id number] Daisha Gimenez PhD Ph:[phone] Performed By: #### 5 [id number], [id number], [id number] #### [facility] (DEFAULT) [address] [place] [address] QuantiFERON-TB Gold Plus Negative Invalid Interpretation Code Negative [facility] Comment on above: Result Comment: No r esponse to M tuberculosis antigens detected. Infection with M tuberculosis is unlikely, but high risk individuals should be considered for additional testing (ATS/IDSA/CDC Clinical Practice Guidelines, 2017). The reference range is an Antigen minus Nil result of <0.35 IU/mL. Chemiluminescence immunoassay methodology Performed At: [address] [id number] Daisha Gimenez PhD Ph:[phone] Performed By: #### 5 [id number], [id number], [id number] #### [facility] (DEFAULT) [address] [place] [address] HBSab Qnt LCon 03-30-2022 Hep B Surf Ab Quant LC <3.1 Low Immunity>9.9 [facility] Comment on above: Result Comment: Stat us of Immunity Anti-HBs Level Inconsistent with Immunity 0.0 - 9.9 Consistent with Immunity >9.9 Performed At: [address] [id number] Daisha Gimenez PhD Ph:[phone] Performed By: #### 5 [id number], [id number], [id number] #### [facility] (DEFAULT) [address] [place] [address] Measles/Mumps/Rubella Immuni ty on 03-30-2022 Mumps Abs, IgG LC 245.0 AU/mL Invalid Interpretation Code Immune >10.9 [facility] Comment on above: Result Comment: Nega tive <9.0 Equivocal 9.0 - 10.9 Positive >10.9 A positive result generally indicates past exposure to Mumps virus or previous vaccination. Performed At: [address] [id number] Daisha Gimenez PhD Ph:[phone] Performed By: #### 5 [id number], [id number], [id number] #### [facility] (DEFAULT) [address] [place] [address] Rubella Antibodies, IgG LC 5.68 index Invalid Interpretation Code Immune >0.99 [facility] Comment on above: Result Comment: Non- immune <0.90 Equivocal 0.90 - 0.99 Immune >0.99 Performed By: #### 5 [id number], [id number], [id number] #### [facility] (DEFAULT) [address] [place] [address] Rubeola Ab, IgG, EIA LC 263.0 AU/mL Invalid Interpretation Code Immune >16.4 [facility] Comment on above: Result Comment: Nega tive <13.5 Equivocal 13.5 - 16.4 Positive >16.4 Presence of antibodies to Rubeola is presumptive evidence of immunity except when acute infection is suspected. Performed By: #### 5 [id number], [id number], [id number] #### [facility] (DEFAULT) [address] [place] [address] Nicotine Metabolite, Urine L Con 03-30-2022 Cotinine LC Negative Invalid Interpretation Code Oozfug=175 [facility] Comment on above: Result Comment: Perf ormed At: [facility] [place] [address] [place], [place] [id number] Geraldo Mar PhD Ph:[phone] Performed By: #### 1 [id number] #### [facility] (DEFAULT) [address] [place] [address] Lab - Toxicology Resultson 1 05-29-2021 Lab - Toxicology Results [id number] #1.00OTGTIFF Normal [facility] CBC AUTO DIFFon 03-09-2021 BASO # 0.0 103/ul Normal 0.0-0.1 [facility] Comment on above: Performed By: #### C BC #### [facility] [address] [place] [address] Dr. Sarah Do Basophils/100 WBC (Bld) 0.2 % Normal 0.2-2.0 [facility] Comment on above: Performed By: #### C BC #### [facility] [address] [place] [address] Dr. Sarah Do EO # 0.1 103/ul Normal 0.0-0.7 [facility] Comment on above: Performed By: #### C BC #### [facility] [address] [place] [address] Dr. Sarah Do Eosinophils/100 WBC (Bld) 1.2 % Normal 0.9-7.0 [facility] Comment on above: Performed By: #### C BC #### [facility] [address] [place] [address] Dr. Sarah Do Erythrocyte distribution width (RBC) [Ratio] 11.9 % Normal 11.0-15.0 [facility] Comment on above: Performed By: #### C BC #### [facility] [address] [place] [address] Dr. Sarah Do Hematocrit (Bld) [Volume fraction] 35.7 % Critically low 36.0-48.0 [facility] Comment on above: Performed By: #### C BC #### [facility] [address] [place] [address] Dr. Sarah Do Hemoglobin (Bld) [Mass/Vol] 12.2 g/dL Normal 12.0-16.[address] [facility] Comment on above: Performed By: #### C BC #### [facility] [address] [place] [address] Dr. Sarah Do IG # 0.03 10e3/ul Normal 0.00-0.03 [facility] Comment on above: Performed By: #### C BC #### [facility] [address] [place] [address] Dr. Sarah Do IG % 0.3 % Normal 0.0-0.5 [facility] Comment on above: Performed By: #### C BC #### [facility] [address] [place] [address] Dr. Sarah Do LYMPH # 3.4 103/ul Normal 1.2-3.8 [facility] Comment on above: Performed By: #### C BC #### [facility] [address] [place] [address] Dr. Sarah Do Lymphocytes/100 WBC (Bld) 37.5 % Normal 20.5-60.0 [facility] Comment on above: Performed By: #### C BC #### [facility] [address] [place] [address] Dr. Sarah Do MANUAL DIFF REQ NO Normal [facility] Comment on above: Performed By: #### C BC #### [facility] [address] [place] [address] Dr. Sarah Do MCH (RBC) [Entitic mass] 29.1 pg Normal 26.7-34.0 [facility] Comment on above: Performed By: #### C BC #### [facility] [address] [place] [address] Dr. Sarah Do MCHC (RBC) [Mass/Vol] 34.2 g/dL Normal 29.9-35.2 [facility] Comment on above: Performed By: #### C BC #### [facility] [address] [place] [address] Dr. Sarah Do MCV (RBC) [Entitic vol] 85.2 fL Normal 81.0-99.0 [facility] Comment on above: Performed By: #### C BC #### [facility] [address] [place] [address] Dr. Sarah Do MONO # 0.6 103/ul Normal 0.3-0.8 [facility] Comment on above: Performed By: #### C BC #### [facility] [address] [place] [address] Dr. Sarah Do Monocytes/100 WBC (Bld) 7.1 % Normal 1.7-12.0 [facility] Comment on above: Performed By: #### C BC #### [facility] [address] [place] [address] Dr. Sarah Do NEUT # 4.8 103/ul Normal 1.4-6.5 [facility] Comment on above: Performed By: #### C BC #### [facility] [address] [place] [address] Dr. Sarah Do Neutrophils/100 WBC (Bld) 53.7 % Normal 43.0-75.0 [facility] Comment on above: Performed By: #### C BC #### [facility] [address] [place] [address] Dr. Sarah Do Platelet mean volume (Bld) [Entitic vol] 9.6 fL Normal 9.5-13.5 [facility] Comment on above: Performed By: #### C BC #### [facility] [address] [place] [address] Dr. Sarah Do PLT 243 103/ul Normal 150-[address] [facility] Comment on above: Performed By: #### C BC #### [facility] [address] [place] [address] Dr. Sarah Do RBC 4.19 106/ul Critically low 4.20-5.40 [facility] Comment on above: Performed By: #### C BC #### [facility] [address] [place] [address] Dr. Sarah Do WBC 9.0 103/ul Normal 4.0-11.0 [facility] Comment on above: Performed By: #### C BC #### [facility] [address] [place] [address] Dr. Sarah Do PROF 14(COMP METB)on 021 Albumin [Mass/Vol] 3.7 g/dL Normal 3.5-5.0 [facility] Comment on above: Performed By: #### C MP #### [facility] [address] [place] [address] Dr. Sarah Do Albumin/Globulin [Mass ratio] 1.2 {ratio} Normal [facility] Comment on above: Performed By: #### C MP #### [facility] [address] [place] [address] Dr. Sarah Do ALP [Catalytic activity/Vol] 38 U/L Normal 38-126 [facility] Comment on above: Performed By: #### C MP #### [facility] [address] [place] [address] Dr. Sarah Do ALT [Catalytic activity/Vol] 24 U/L Normal 9-52 [facility] Comment on above: Performed By: #### C MP #### [facility] [address] [place] [address] Dr. Sarah Do Anion gap [Moles/Vol] 10.2 mmol/L Normal [facility] Comment on above: Performed By: #### C MP #### [facility] [address] [place] [address] Dr. Sarah Do AST [Catalytic activity/Vol] 12 U/L Critically low 14-36 [facility] Comment on above: Performed By: #### C MP #### [facility] [address] [place] [address] Dr. Sarah Do Bilirubin [Mass/Vol] 0.2 mg/dL Normal 0.2-1.3 [facility] Comment on above: Performed By: #### C MP #### [facility] [address] [address] [address] Sarah Do Calcium [Mass/Vol] 8.6 mg/dL Normal 8.4-10.2 [facility] Comment on above: Performed By: #### C MP #### [facility] [address] [address] [address] Sarah Do Chloride [Moles/Vol] 105 mmol/L Normal 98-107 [facility] Comment on above: Performed By: #### C MP #### [facility] [address] [address] [address] Sarah Do CO2 [Moles/Vol] 26.9 mmol/L Normal 22.0-30.0 [facility] Comment on above: Performed By: #### C MP #### [facility] [address] [place] [address] Dr. Sarah Do Creatinine [Mass/Vol] 0.68 mg/dL Normal 0.52-1.04 [facility] Comment on above: Performed By: #### C MP #### [facility] [address] [place] [address] Dr. Sarah Do EGFR-AF CHADIAN >60 Normal >=60 [facility] Comment on above: Performed By: #### C MP #### [facility] [address] [address] [address] Sarah Do EGFR-NON AF CHADIAN >60 Normal >=60 [facility] Comment on above: Performed By: #### C MP #### [facility] [address] [place] [address] Dr. Sarah Do Globulin (S) [Mass/Vol] 3.1 g/dL Normal T [facility] Comment on above: Performed By: #### C MP #### [facility] [address] [address] [address] Sarah oD Glucose [Mass/Vol] 98 mg/dL Normal 74-106 [facility] Comment on above: Performed By: #### C MP #### [facility] [address] [address] [address] Sarah Do Potassium [Moles/Vol] 3.1 mmol/L Critically low 3.4-5.0 [facility] Comment on above: Performed By: #### C MP #### [facility] [address] [address] [address] Sarah Do Protein [Mass/Vol] 6.8 g/dL Normal 6.1-8.2 [facility] Comment on above: Performed By: #### C MP #### [facility] [address] [address] [address] Sarah Do Sodium [Moles/Vol] 139 mmol/L Normal 137-145 [facility] Comment on above: Performed By: #### C MP #### [facility] [address] [address] [address] Sarah Do Urea nitrogen [Mass/Vol] 12.0 mg/dL Normal 7.0-17.0 [facility] Comment on above: Performed By: #### C MP #### [facility] [address] [address] [address] Sarah Do Urea nitrogen/Creatinine [Mass ratio] 17.6 mg/mg Normal [facility] Comment on above: Performed By: #### C MP #### [facility] [address] [address] [address] Sarah Do PROLACTINon 03-09-2021 Prolactin 14.5 ng/mL Normal 4.8-23.[address] [facility] Comment on above: Performed By: #### I GABRIELA #### [facility] [address] [address] Keren Finch PROTIMEon 03-09-2021 INR Coag (PPP) [Relative time] 0.99 {INR} Normal [facility] Comment on above: Performed By: #### P T, PTT #### [facility] [address] [address] [address] Sarah Do INR GUIDELINES SEE BELOW Normal [facility] Comment on above: Result Comment: CARY RED INR: 2.0 - 3.0 CONDITIONS NOT LISTED BELOW 2.5 - 3.5 FOR PROSTHETIC HEART VALVE REPLACEMENT 2.5 - 3.5 RECURRENT THROMBOSIS Performed By: #### P T, PTT #### [facility] [address] [place] [address] Dr. Sarah Do PT Coag (PPP) [Time] 10.7 s Normal 9.0-11.6 [facility] Comment on above: Performed By: #### P T, PTT #### [facility] [address] [place] [address] Dr. Sarah Do PTTon 03-09-2021 aPTT Coag (Bld) [Time] 26.1 s Normal 22.3-36.2 [facility] Comment on above: Performed By: #### P T, PTT #### [facility] [address] [place] [address] Dr. Sarah Do IRONon 01-17-2021 Iron [Mass/Vol] 104.0 ug/dL Normal 37.0-170.0 [facility] Comment on above: Performed By: #### I GABRIELA #### [facility] [address] [place] [address] Keren Finch PROF 14(COMP METB)on 021 Albumin [Mass/Vol] 4.0 g/dL Normal 3.5-5.0 [facility] Comment on above: Performed By: #### C MP, TSH #### [facility] [address] [place], [place] [id number] Keren Josette Albumin/Globulin [Mass ratio] 1.3 {ratio} Normal [facility] Comment on above: Performed By: #### C MP, TSH #### [facility] [address] [place] [address] Keren Josette ALP [Catalytic activity/Vol] 31 U/L Critically low 38-126 [facility] Comment on above: Performed By: #### C MP, TSH #### [facility] [address] [place] [address] Keren Josette ALT [Catalytic activity/Vol] 21 U/L Normal 9-52 [facility] Comment on above: Performed By: #### C MP, TSH #### [facility] [address] [address] Keren Josette Anion gap [Moles/Vol] 13.1 mmol/L Normal [facility] Comment on above: Performed By: #### C MP, TSH #### [facility] [address] [address] Keren Josette AST [Catalytic activity/Vol] 23 U/L Normal 14-[address] [facility] Comment on above: Performed By: #### C MP, TSH #### [facility] [address] [address] Keren Josette Bilirubin [Mass/Vol] 0.4 mg/dL Normal 0.2-1.[address] [facility] Comment on above: Performed By: #### C MP, TSH #### [facility] [address] [place] [address] Keren Josette Calcium [Mass/Vol] 8.9 mg/dL Normal 8.4-10.2 [facility] Comment on above: Performed By: #### C MP, TSH #### [facility] [address] [place] [address] Keren Josette Chloride [Moles/Vol] 103 mmol/L Normal 98-[address] [facility] Comment on above: Performed By: #### C MP, TSH #### [facility] [address] [place] [address] Keren Josette CO2 [Moles/Vol] 28.4 mmol/L Normal 22.0-30.0 [facility] Comment on above: Performed By: #### C MP, TSH #### [facility] [address] [address] Keren Josette Creatinine [Mass/Vol] 0.60 mg/dL Normal 0.52-1.[address] [facility] Comment on above: Performed By: #### C MP, TSH #### [facility] [address] [id number] Keren Josette EGFR-AF CHADIAN >60 Normal >=60 [facility] Comment on above: Performed By: #### C MP, TSH #### [facility] [address] [place], [place] [id number] Keren Josette EGFR-NON AF CHADIAN >60 Normal >=60 [facility] Comment on above: Performed By: #### C MP, TSH #### [facility] [address] [id number] Keren Josette Globulin (S) [Mass/Vol] 3.1 g/dL Normal T [facility] Comment on above: Performed By: #### C MP, TSH #### [facility] [address] [place] [address] Keren Josette Glucose [Mass/Vol] 101 mg/dL Normal 74-106 [facility] Comment on above: Performed By: #### C MP, TSH #### [facility] [address] [place] [address] Keren Josette Potassium [Moles/Vol] 3.5 mmol/L Normal 3.4-5.0 [facility] Comment on above: Performed By: #### C MP, TSH #### [facility] [address] [place] [address] Keren Josette Protein [Mass/Vol] 7.1 g/dL Normal 6.1-8.2 [facility] Comment on above: Performed By: #### C MP, TSH #### [facility] [address] [place], [place] [id number] Keren Josette Sodium [Moles/Vol] 141 mmol/L Normal 137-145 [facility] Comment on above: Performed By: #### C MP, TSH #### [facility] [address] [place] [address] Keren Josette Urea nitrogen [Mass/Vol] 9.0 mg/dL Normal 7.0-17.0 [facility] Comment on above: Performed By: #### C MP, TSH #### [facility] [address] [place], [place] [phone] Keren Josette Urea nitrogen/Creatinine [Mass ratio] 15.0 mg/mg Normal [facility] Comment on above: Performed By: #### C MP, TSH #### [facility] [address] [place], [place] [id number] Keren Josette TSHon 01-17-2021 TSH 0.730 uIU/mL Normal 0.470-4.680 [facility] Comment on above: Performed By: #### C MP, TSH #### [facility] [address] [place], [place] [address] Keren Finch TSH RANGE SEE BELOW Normal [facility] Comment on above: Result Comment: <0.3 4 UIU/ml HYPERTHYROID 0.34-5.60 UIU/ml EUTHYROID >5.60 UIU/ml HYPOTHYROID Performed By: #### C MP, TSH #### [facility] [address] [place], [place] [address] Keren Finch Stool PCR [place] 11-21-19 Campylobacter sp PCR NEGATIVE: No Campylobacter spp. (jejuni or coli) DNA Detected [facility] Comment on above: Performed By: #### S TLPCR #### [address] [address] Swaging Machine Operator: Darius Fernández MD [facility] [address] [place] [address] [place] [address] Swaging Machine Operator: Gucci Barcenas MD E coli enterotox PCR NEGATIVE: No Enterotoxigenic E. coli (ETEC) Heat-labile and heat-stable (LT/ST) Normal [facility] Comment on above: Result Comment: DNA Detected Performed By: #### S TLPCR #### [address] [address] Swaging Machine Operator: Darius Fernández MD [facility] [address] [place] [address] [address] [id number] Swaging Machine Operator: Gucci Barcenas MD Plesiomonas sp PCR Negative Normal [facility] Comment on above: Performed By: #### S TLPCR #### [address] [address] Swaging Machine Operator: Darius Fernández MD [facility] [address] [place] [id number] Swaging Machine Operator: Gucci Barcenas MD Salmonella sp PCR Negative Normal [facility] Comment on above: Performed By: #### S TLPCR #### [facility] [address] [place] [address] Swaging Machine Operator: Darius Fernández MD [facility] [address] [place] [address] Swaging Machine Operator: Gucci Barcenas MD Shigatoxin gene PCR Positive Abnormal [facility] Comment on above: Result Comment: Analytical studies have demonstrated that certain strains of Shigella dysenteriae may harbor both the ipaH and stx BD MAX Enteric Bacterial Panel targets. Additionally, there have been literature reports of S. boudii strains presenting with both ipaH and stx. On rare occasions it may be possible that more than one BD MAX Enteric Bacterial Panel target is positive from a single organism that harbors two or more genes detected by the assay. The presence of more than one positive BD MAX Enteric Panel target may also be indicative of a dual-infection. A positive BD MAX Enteric Bacterial Panel result for Shiga toxin (stx1 or 2) may be indicative of the presence of a Shiga toxin-producing E. coli, Shigella dysenteriae or other Enterobacteriaceae, that rarely carry Shiga toxin genes. Results reported to the appropriate Health Department Performed By: #### S TLPCR #### [facility] [address] [place] [address] Swaging Machine Operator: Darius Fernández MD [facility] [address] [place] [address] [place] [address] Swaging Machine Operator: Gucci Barcenas MD Shigella sp PCR Negative Normal [facility] Comment on above: Performed By: #### S TLPCR #### [facility] [address] [place] [address] Swaging Machine Operator: Darius Fernández MD [facility] [address] [place] [address] Swaging Machine Operator: Gucci Barcenas MD Vibrio sp PCR NEGATIVE: No Vibrio (V. vulnificus, V, parahaemolyticus and V. cholerae) DNA Normal [facility] Comment on above: Result Comment: Dete cted Performed By: #### S TLPCR #### [facility] [address] [place] [address] Swaging Machine Operator: Darius Fernández MD [facility] [address] [place] [address] Swaging Machine Operator: Gucci Barcenas MD Yersinia gene PCR Negative Normal YERNE[facility] Comment on above: Performed By: #### S TLPCR #### [facility] [address] [place] [address] Swaging Machine Operator: Darius Fernández MD [facility] [address] [place] [address] Swaging Machine Operator: Gucci Barcenas MD CBC Auto DifferentialOrdered By: Alonso Sykes on 11-19-2020 [facility]os # 0.09 [facility] Work Phone: Absolute Immature Granulocyte <0.03 [facility] Work Phone: Absolute Lymph # 2.15 [facility] Work Phone: Absolute Childress # 0.67 [facility] Work Phone: Basophils (Bld) [#/Vol] 10*3/uL M [employer] Work Phone: Basophils/100 WBC (Bld) 0 % 0 - 2 % M [employer] Work Phone: Differential Type NOT REPORTED [facility] Work Phone: Eosinophils/100 WBC (Bld) 1 % 1 - 4 % [employer] Work Phone: Hematocrit (Bld) [Volume fraction] 40.0 % 36.3 - 47.1 % [facility] Work Phone: Hemoglobin.gastrointest inal spec 1 Ql (Stl) 13.6 g/dL 11.9 - 15.1 g/dL [facility] Work Phone: Immature granulocytes/100 WBC (Bld) 0 % 0 [facility] Phone: Interpretation and review of laboratory results Abnormal [facility] [facility] Phone: Lymphocytes/100 WBC (Bld) 31 % 25 - 45 % [facility] [facility] Phone: MCH (RBC) [Entitic mass] 29.4 pg 25.2 - 33.5 pg [facility] Phone: MCHC (RBC) [Mass/Vol] 34.0 g/dL 28.4 - 34.8 g/dL [facility] Phone: MCV (RBC) [Entitic vol] 86.4 fL 82.6 - 102.9 fL [facility] Phone: Monocytes/100 WBC (Bld) 10 % High 2 - 8 % M [employer] Phone: NRBC Automated 0.0 0.0 per 100 WBC [facility] Phone: Platelet distribution width (Bld) [Ratio] 11.9 % 11.8 - 14.4 % [facility] Phone: Platelet Estimate NOT REPORTED [facility] Phone: Platelet mean volume (Bld) [Entitic vol] 9.4 fL 8.1 - 13.5 fL [facility] Phone: Platelets (Bld) [#/Vol] 247 10*3/uL [facility] Phone: RBC (Bld) [#/Vol] 4.63 10*6/uL 3.95 - 5.1 1 m/uL [facility] Phone: RBC (Bld) [#/Vol] NOT REPORTED [facility] Phone: Segmented neutrophils/100 WBC (Bld) 58 % 34 - 64 % [facility] Phone: Segs Absolute 3.93 [facility] Work Phone: WBC (Bld) [#/Vol] 6.9 10*3/uL [facility] Work Phone: WBC (Bld) [#/Vol] NOT REPORTED [facility] Work Phone: [facility] Work Phone: CBC with Diffon 11-19-2020 Abs. Basophil <0.03 Normal 0.00-0.20 [facility] Comment on above: Performed By: #### L IP, CP, CDP #### [address] [place], [place] [id number] Swaging Machine Operator: Gucci Barcenas MD Abs.Imm.Granulocyte <0.03 Normal 0.00-0.30 [facility] Comment on above: Performed By: #### L IP, CP, CDP #### [address] [place], [place] [address] Swaging Machine Operator: Gucci Barcenas MD Abs.Neutrophil (Seg) 3.93 k/uL Normal 1.50-8.10 [facility] Comment on above: Performed By: #### L IP, CP, CDP #### [address] [place], [facility]83 Swaging Machine Operator: Gucci Barcenas MD Basophils/100 WBC (Bld) 0 % Normal 0-2 [facility] Comment on above: Performed By: #### L IP, CP, CDP #### [address] [place] [address] Swaging Machine Operator: Gucci Barcenas MD Eosinophils (Bld) [#/Vol] 0.09 10*3/uL Normal 0.00-0.44 [facility] Comment on above: Performed By: #### L IP, CP, CDP #### [address] [place], [place] [id number] Swaging Machine Operator: Gucci Barcenas MD Eosinophils/100 WBC (Bld) 1 % Normal 1-4 [facility] Comment on above: Performed By: #### L KIMBERLI CP, CDP #### [facility] [address] [place], [place] [id number] Swaging Machine Operator: Gucci Barcenas MD Erythrocyte distribution width (RBC) [Ratio] 11.9 % Normal 11.8-14.4 [facility] Comment on above: Performed By: #### L IP CP, CDP #### [facility] [address] [place], [place] [phone] Swaging Machine Operator: Gucci Barcenas MD Hematocrit (Bld) [Volume fraction] 40.0 % Normal 36.3-47.1 [facility] Comment on above: Performed By: #### L KIMBERLI CP, CDP #### [address] [place], [facility]83 Swaging Machine Operator: Gucci Barcenas MD Hemoglobin (Bld) [Mass/Vol] 13.6 g/dL Normal 11.9-15.1 [facility] Comment on above: Performed By: #### L CATERINA AG, CDP #### [address] [place], [place] [address] Swaging Machine Operator: Gucci Barcenas MD Immature granulocytes/100 WBC (Bld) 0 % Normal 0 [facility] Comment on above: Performed By: #### L KIMBERLI CP, CDP #### [address] [place], [place] [phone] Swaging Machine Operator: Gucci Barcenas MD Lymphocytes (Bld) [#/Vol] 2.15 10*3/uL Normal 1.10-3.70 [facility] Comment on above: Performed By: #### L IP, CP, CDP #### [address] [place], [place] [address] Swaging Machine Operator: Gucci Barcenas MD Lymphocytes/100 WBC (Bld) 31 % Normal 25-45 [facility] Comment on above: Performed By: #### L IP, CP, CDP #### [address] [place] [id number] Swaging Machine Operator: Gucci Barcenas MD MCH (RBC) [Entitic mass] 29.4 pg Normal 25.2-33.5 [facility] Comment on above: Performed By: #### L IP, CP, CDP #### [address] [place] [id number] Swaging Machine Operator: Gucci Barcenas MD MCHC (RBC) [Mass/Vol] 34.0 g/dL Normal 28.4-34.8 [facility] Comment on above: Performed By: #### L IP, CP, CDP #### [address] [place] [id number] Swaging Machine Operator: Gucci Barcenas MD MCV (RBC) [Entitic vol] 86.4 fL Normal 82.6-102.9 [facility] Comment on above: Performed By: #### L KIMBERLI CP, CDP #### [address] [place], [facility]83 Swaging Machine Operator: Gucci Barcenas MD Monocytes (Bld) [#/Vol] 0.67 10*3/uL Normal 0.10-1.40 [facility] Comment on above: Performed By: #### L IP CP, CDP #### [address] [place], [facility]83 Swaging Machine Operator: Gucci Barcenas MD Monocytes/100 WBC (Bld) 10 % High 2-8 [facility] Comment on above: Performed By: #### L IP, CP, CDP #### [address] [place] [address] Swaging Machine Operator: Gucci Barcenas MD Neutrophil (Seg) 58 % Normal 34-64 [facility] [place] Comment on above: Performed By: #### L IP, CP, CDP #### [address] [place], [place] [id number] Swaging Machine Operator: Gucci Barcenas MD NRBC Automated 0.0 per 100 WBC Normal 0.0 [facility] Comment on above: Performed By: #### L IP, CP, CDP #### [address] [place], [place] [address] Swaging Machine Operator: Gucci Barcenas MD Platelet mean volume (Bld) [Entitic vol] 9.4 fL Normal 8.1-13.5 [facility] Comment on above: Performed By: #### L IP, CP, CDP #### [address] [place] [address] Swaging Machine Operator: Gucci Barcenas MD Platelets (Bld) [#/Vol] 247 10*3/uL Normal 138-453 [facility] Comment on above: Performed By: #### L IP, CP, CDP #### [address] [place], [facility]83 Swaging Machine Operator: Gucci Barcenas MD RBC (Bld) [#/Vol] 4.63 10*6/uL Normal 3.95-5.11 [facility] Comment on above: Performed By: #### L IP, CP, CDP #### [address] [place], [place] [address] Swaging Machine Operator: Gucci Barcenas MD WBC (Bld) [#/Vol] 6.9 10*3/uL Normal 4.5-13.5 [facility] Comment on above: Performed By: #### L IP, CP, CDP #### [address] [place], [place] [phone] Swaging Machine Operator: Gucci Barcenas MD Auto Diff Performed NOT REPORTED Normal [facility] Comment on above: Performed By: #### L IP, CP, CDP #### [place] [address] [place], [place] [phone] Swaging Machine Operator: Gucci Barcenas MD Platelet Estimate NOT REPORTED Normal [facility] Comment on above: Performed By: #### L CATERINA AG, CDP #### [facility] [address] [place], [place] [address] Swaging Machine Operator: Gucci Barcenas MD RBC morphology finding Nom (Bld) NOT REPORTED Normal [facility] Comment on above: Performed By: #### L CATERINA AG, CDP #### [facility] [address] [place], [place] [phone] Swaging Machine Operator: Gucci Barcenas MD WBC Morphology NOT REPORTED Normal [facility] [place] Comment on above: Performed By: #### L CATERINA AG, CDP #### [address] [place] [address] Swaging Machine Operator: Gucci Barcenas MD Comp Metabolic Profon 2020 (cont.) Normal [facility] Comment on above: Result Comment: Aver age GFR for 20-29 years old: 116 mL/min/1.73sq m Chronic Kidney Disease: <60 mL/min/1.73sq m Kidney failure: <15 mL/min/1.73sq m eGFR calculated using average adult body mass. Additional eGFR calculator available at: http://www.[facility]/multiple_crcl_2011.htm Performed By: #### L CATERINA AG, CDP #### [facility] [address] [place] [address] [place] [address] Swaging Machine Operator: Gucci Barcenas MD Albumin [Mass/Vol] 4.7 g/dL Normal 3.5-5.2 [facility] Comment on above: Performed By: #### L CATERINA AG, CDP #### [facility] [address] [place] [address] [place] [address] Swaging Machine Operator: Gucci Barcenas MD Albumin/Glob Ratio 1.8 Normal 1.0-2.5 [facility] Comment on above: Performed By: #### L IP, CP, CDP #### [facility] [address] [place], [place] [address] Swaging Machine Operator: Gucci Barcenas MD Alkaline Phos 36 U/L Normal 35-104 [facility] Comment on above: Performed By: #### L IP, CP, CDP #### [facility] [address] [place], [place] [phone] Swaging Machine Operator: Gucci Barcenas MD ALT [Catalytic activity/Vol] 16 U/L Normal 5-33 [facility] Comment on above: Performed By: #### L IP, CP, CDP #### [address] [place], [place] [phone] Swaging Machine Operator: Gucci Barcenas MD Anion gap [Moles/Vol] 10 mmol/L Normal 9-17 [facility] Comment on above: Performed By: #### L IP, CP, CDP #### [address] [place], [place] [phone] Swaging Machine Operator: Gucci Barcenas MD AST [Catalytic activity/Vol] 18 U/L Normal <32 [facility] Comment on above: Performed By: #### L IP, CP, CDP #### [address] [place], [place] [phone] Swaging Machine Operator: Gucci Barcenas MD Bilirubin [Mass/Vol] 0.26 mg/dL Low 0.3-1.2 [facility] Comment on above: Performed By: #### L IP, CP, CDP #### [address] [place], [place] [phone] Swaging Machine Operator: Gucci Barcenas MD BUN/CRE Ratio 21 High 9-20 [facility] Comment on above: Performed By: #### L IP, CP, CDP #### [facility] [address] [place] [address] [place] [address] Swaging Machine Operator: Gucci Barcenas MD Calcium [Mass/Vol] 9.6 mg/dL Normal 8.6-10.4 [facility] Comment on above: Performed By: #### L IP, CP, CDP #### [facility] [address] [place] [address] Swaging Machine Operator: Gucci Barcenas MD Chloride [Moles/Vol] 103 mmol/L Normal 98-107 [facility] Comment on above: Performed By: #### L IP, CP, CDP #### [facility] [address] [place] [address] Swaging Machine Operator: Gucci Barcenas MD CO2 [Moles/Vol] 26 mmol/L Normal 20-31 [facility] Comment on above: Performed By: #### L IP, CP, CDP #### [facility] [address] [place] [address] Swaging Machine Operator: Gucci Barcenas MD Creatinine [Mass/Vol] 0.58 mg/dL Normal 0.50-0.90 [facility] Comment on above: Performed By: #### L IP, CP, CDP #### [facility] [address] [place] [address] Swaging Machine Operator: Gucci Barcenas MD GFR, Amer >60 Normal >60 [facility] [place] Comment on above: Performed By: #### L IP, CP, CDP #### [facility] [address] [place] [address] Swaging Machine Operator: Gucci Barcenas MD GFR,non Amer >60 Normal >60 [facility] Comment on above: Performed By: #### L IP, CP, CDP #### [facility] [address] [place] [address] Swaging Machine Operator: Gucci Barcenas MD Glucose [Mass/Vol] 95 mg/dL Normal 70-99 [facility] Comment on above: Performed By: #### L IP, CP, CDP #### [facility] [address] [place] [address] [place] [address] Swaging Machine Operator: Gucci Barcenas MD Potassium [Moles/Vol] 3.8 mmol/L Normal 3.7-5.3 [facility] Comment on above: Performed By: #### L IP, CP, CDP #### [facility] [address] [place] [address] Dr. [place], [place] [phone] Swaging Machine Operator: Gucci Barcenas MD Protein [Mass/Vol] 7.3 g/dL Normal 6.4-8.3 [facility] Comment on above: Performed By: #### L IP, CP, CDP #### [address] [place], [place] [id number] Swaging Machine Operator: Gucci Barcenas MD Sodium [Moles/Vol] 139 mmol/L Normal 135-144 [facility] Comment on above: Performed By: #### L IP, CP, CDP #### [facility] [address] [place] [address] Dr. [place], [place] [id number] Swaging Machine Operator: Gucci Barcenas MD Staging: Normal [facility] Comment on above: Result Comment: Stag e 1: Some kidney damage normal GFR Stage 2: Mild kidney damage GFR 60-89 Stage 3: Moderate kidney damage GFR 30-59 Stage 4: Severe kidney damage GFR 15-29 Stage 5: Severe kidney damage GFR <15 ESRD - chronic treatment by dialysis or transplant Performed By: #### L IP, CP, CDP #### [facility] [address] [place] [address] Dr. [place], [place] [phone] Swaging Machine Operator: Gucci Barcenas MD Urea nitrogen [Mass/Vol] 12 mg/dL Normal 6-20 [facility] Comment on above: Performed By: #### L IP, CP, CDP #### [facility] [address] [place] [address] [place] [address] Swaging Machine Operator: Gucci Barcenas MD Comprehensive Metabolic Pane lOrdered By: Alonso Sykes on 11-19-2020 Albumin [Mass/Vol] 4.7 g/dL 3.5 - 5.2 g/dL [facility] Phone: Albumin/Globulin [Mass ratio] 1.8 {ratio} [facility] Phone: ALP (Bld) [Catalytic activity/Vol] 36 U/L 35 - 104 U/L [facility] Phone: ALT [Catalytic activity/Vol] 16 U/L 5 - 33 U/L [facility] Phone: Anion gap [Moles/Vol] 10 mmol/L 9 - 17 mmol/L [facility] Phone: AST [Catalytic activity/Vol] 18 U/L <32 [facility] Phone: Bilirubin [Mass/Vol] 0.26 mg/dL Low 0.3 - 1 .2 mg/dL [facility] Phone: Calcium [Mass/Vol] 9.6 mg/dL 8.6 - 10. 4 mg/dL [facility] Phone: Chloride [Moles/Vol] 103 mmol/L 98 - 10 7 mmol/L [facility] Phone: CO2 [Moles/Vol] 26 mmol/L 20 - 31 mmol/L [facility] Phone: Creatinine [Mass/Vol] 0.58 mg/dL 0.50 - 0.90 mg/dL [facility] Phone: Free PSA/Total PSA [Mass fraction] 7.3 g/dL 6.4 - 8.3 g/dL [facility] Phone: GFR >60 >60 mL/min [employer] Phone: GFR Non- >60 >60 mL/min [facility] Phone: Glucose [Mass/Vol] 95 mg/dL 70 - 99 mg/dL [facility] Phone: Interpretation and review of laboratory results Abnormal [facility] Phone: Potassium [Moles/Vol] 3.8 mmol/L 3.7 - 5.3 mmol/L [facility] Phone: Sodium [Moles/Vol] 139 mmol/L 135 - 144 mmol/L [facility] Phone: Urea nitrogen (BldV) [Mass/Vol] 12 mg/dL 6 - 20 mg/dL [facility] Phone: Urea nitrogen/Creatinine (Bld) [Mass ratio] 21 High [facility] Phone: HCG, ,Urineon 11-19 Beta HCG ( test) Ql (U) Negative Normal NEG [facility] Comment on above: Result Comment: Spec imens with hCG levels near the threshold of the test (25 mIU/mL) may give a negative or indeterminate result. In such cases, another test should be performed with a new specimen in 48-72 hours. If early is suspected clinically in this setting, correlation with quantitative serum b-hCG level is suggested. [employer] has confirmed the use of plasma for this test. This has not been cleared or approved by the U.S. Food and Drug Administration. The FDA has determined that such clearance is not necessary. Performed By: #### U HCG, UAMIC #### [facility] [address] [place] [address] [place] [address] Swaging Machine Operator: Gucci Barcenas MD Laboratory - Chemistry and C hemistry - challengeOrdered By: Alonso Sykes on 11-19-2020 GFR/1.73 sq M.predicted MDRD (S/P/Bld) [Vol rate/Area] [facility] [employer] Phone: Comment on above: Average GFR for 20-2 9 years old: 116 mL/min/1.73sq m Chronic Kidney Disease: <60 mL/min/1.73sq m Kidney failure: <15 mL/min/1.73sq m eGFR calculated using average adult body mass. Additional eGFR calculator available at: http://www.[facility].com/multiple_crcl_2012.htm Stage 1: Some kidney damage normal GFR Stage 2: Mild kidney damage GFR 60-89 Stage 3: Moderate kidney damage GFR 30-59 Stage 4: Severe kidney damage GFR 15-29 Stage 5: Severe kidney damage GFR <15 ESRD - chronic treatment by dialysis or transplant Lipaseon 11-19-2020 Lipase [Catalytic activity/Vol] 27 U/L Normal 13-60 [facility] Comment on above: Performed By: #### L IP, CP, CDP #### [facility] [address] [place] [address] Swaging Machine Operator: Gucci Barcenas MD LipaseOrdered By: Alonso desai on 11-19-2020 Lipase [Catalytic activity/Vol] 27 U/L 13 - 60 U/L [facility] Phone: No Panel InformationOrdered By: Alonso Sykes on 11-19-2020 [facility]: , UrineOrdered By: Alonso Sykes on 11-19-2020 Beta HCG ( test) Ql (U) Negative NEGATIVE [facility]: Comment on above: Specimens with hCG l evels near the threshold of the test (25 mIU/mL) may give a negative or indeterminate result. In such cases, another test should be performed with a new specimen in 48-72 hours. If early is suspected clinically in this setting, correlation with quantitative serum b-hCG level is suggested. [employer] has confirmed the use of plasma for this test. This has not been cleared or approved by the U.S. Food and Drug Administration. The FDA has determined that such clearance is not necessary. [facility]: Stool PCR [place] 11-20-19 21 Specimen Description .FECES Normal [facility] Comment on above: Performed By: #### S TLPCR #### [employer] [address] [place] [address] Swaging Machine Operator: Darius Fernández MD [facility] [address] [place], [place] [id number] Swaging Machine Operator: Gucci Barcenas MD Urinalysis w/ Microon 2020 ----- Normal [facility] Comment on above: Performed By: #### U HCG, UAMIC #### [facility] [address] [place], [place] [id number] Swaging Machine Operator: Gucci Barcenas MD Bacteria 1+ Abnormal NONE [facility] Comment on above: Performed By: #### U HCG, UAMIC #### [facility] [address] [place] [id number] Swaging Machine Operator: Gucci Barcenas MD Bilirubin, SemiQt,Ur Negative Normal NEG [facility] Comment on above: Performed By: #### U HCG, UAMIC #### [facility] [address] [place], [facility] Swaging Machine Operator: Gucci Barcenas MD Blood, Urine 3+ Abnormal NEG [facility] Comment on above: Performed By: #### U HCG, UAMIC #### [facility] [address] [place], [facility] Swaging Machine Operator: Gucci Barcenas MD Clarity (U) CLEAR Normal CLEAR [facility] Comment on above: Performed By: #### U HCG, UAMIC #### [facility] [address] [place], [facility] Swaging Machine Operator: Gucci Barcenas MD Color (U) YELLOW Normal YEL [facility] Comment on above: Performed By: #### U HCG, UAMIC #### [facility] [address] [place] [address] Swaging Machine Operator: Gucci Barcenas MD Epithelial cells LM Ql (Urine sed) 5 TO 10 Normal 0-25 [facility] Comment on above: Performed By: #### U HCG, UAMIC #### [facility] [address] [place], [place] [id number] Swaging Machine Operator: Gucci Barcenas MD Glucose Ql (U) Negative Normal NEG [facility] Comment on above: Performed By: #### U HCG, UAMIC #### [facility] [address] [place], [place] [phone] Swaging Machine Operator: Gucci Barcenas MD Ketones Ql (U) Negative Normal NEG [facility] Comment on above: Performed By: #### U HCG, UAMIC #### [facility] [address] [place], [place] [id number] Swaging Machine Operator: Gucci Barcenas MD Leukocyte esterase Test strip Ql (U) SMALL Abnormal NEG [facility] Comment on above: Performed By: #### U HCG, UAMIC #### [facility] [address] [place], [place] [phone] Swaging Machine Operator: Gucci Barcenas MD Mucus Strands 2+ Abnormal NONE [facility] Comment on above: Performed By: #### U HCG, UAMIC #### [facility] [address] [place] [address] [address] [place], [place] [id number] Swaging Machine Operator: Gucci Barcenas MD Nitrite,Ur Negative Normal NEG [facility] Comment on above: Performed By: #### U HCG, UAMIC #### [facility] [address] [place], [place] [phone] Swaging Machine Operator: Gucci Barcenas MD PH,Ur 6.0 Normal 5.0-9.0 [facility] Comment on above: Performed By: #### U HCG, UAMIC #### [facility] [address] [place], [place] [phone] Swaging Machine Operator: Gucci Barcenas MD Protein Ql (U) Negative Normal NEG [facility] Comment on above: Performed By: #### U HCG, UAMIC #### [facility] [address] [place] [address] Swaging Machine Operator: Gucci Barcenas MD Spec. [place],Ur 1.025 High 1.010-1.[address] [facility] Comment on above: Performed By: #### U HCG, UAMIC #### [facility] [address] [place], [place] [phone] Swaging Machine Operator: Gucci Barcenas MD Urine RBC's 0 TO 2 Normal 0-2 [facility] Comment on above: Performed By: #### U HCG, UAMIC #### [facility] [address] [place], [place] [phone] Swaging Machine Operator: Gucci Barcenas MD Urine WBC's 10 TO 20 Normal 0-5 [facility] Comment on above: Performed By: #### U HCG, UAMIC #### [facility] [address] [place], [place] [phone] Swaging Machine Operator: Gucci Barcenas MD Urobilinogen,Ur Normal Normal NORM [facility] Comment on above: Performed By: #### U HCG, UAMIC #### [facility] [address] [place] [address] Swaging Machine Operator: Gucci Barcenas MD Amorphous sediment LM Ql (Urine sed) NOT REPORTED Normal NONE [facility] Comment on above: Performed By: #### U HCG, UAMIC #### [facility] [address] [place] [address] Swaging Machine Operator: Gucci Barcenas MD Casts NOT REPORTED Normal [facility] Comment on above: Performed By: #### U HCG, UAMIC #### [facility] [address] [place], [place] [phone] Swaging Machine Operator: Gucci Barcenas MD Comment NOT REPORTED Normal [facility] Comment on above: Performed By: #### U HCG, UAMIC #### [facility] [address] [place], [place] [phone] Swaging Machine Operator: Gucci Barcenas MD Crystals LM Nom (Urine sed) NOT REPORTED Normal [facility] Comment on above: Performed By: #### U HCG, UAMIC #### [facility] [address] [place], [place] [phone] Swaging Machine Operator: Gucci Barcenas MD Epithelial, Renal NOT REPORTED Normal [address] [place] [address] Comment on above: Performed By: #### U HCG, UAMIC #### [facility] [address] [place] [address] Swaging Machine Operator: Gucci Barcenas MD Other Observations NOT REPORTED [facility] on above: Performed By: #### U HCG, UAMIC #### [facility] [address] [place], [place] [phone] Swaging Machine Operator: Gucci Barcenas MD Trichomonas NOT REPORTED Normal [facility] Comment on above: Performed By: #### U HCG, UAMIC #### [facility] [address] [place], [place] [phone] Swaging Machine Operator: Gucci Barcenas MD Yeast NOT REPORTED Normal [facility] Comment on above: Performed By: #### U HCG, UAMIC #### [facility] [address] [place], [place] [phone] Swaging Machine Operator: Gucci Barcenas MD Urinalysis with MicroscopicO rdered By: Alonso Sykes on 11-19-2020 - [facility] Work Phone: Amorphous, UA NOT REPORTED None [facility] Work Phone: Bacteria, UA 1+ Abnormal None [facility] Work Phone: Bilirubin Urine Negative NEGATIVE [facility] Work Phone: Casts UA NOT REPORTED /LPF [facility] Work Phone: Color, UA YELLOW YELLOW [facility] Work Phone: Crystals, UA NOT REPORTED None /HPF [facility] [employer] Work Phone: Epithelial Cells UA 5 TO 10 [facility] [employer] Work Phone: Glucose, Ur Negative NEGATIVE [facility] [employer] Work Phone: Interpretation and review of laboratory results Abnormal [facility] [employer] Work Phone: Ketones Ql (U) Negative NEGATIVE [facility] Work Phone: Leukocyte esterase Test strip Ql (U) SMALL Abnormal NEGATIVE [facility] [employer] Work Phone: Mucus, UA 2+ Abnormal None [facility] [employer] Work Phone: Nitrite, Urine Negative NEGATIVE [facility] Work Phone: Other Observations UA NOT REPORTED NOT REQ. M [facility] [employer] Work Phone: pH, UA 6.0 [facility] [employer] Work Phone: Protein, UA Negative NEGATIVE [facility] [employer] Work Phone: RBC, UA 0 TO 2 [facility] [employer] Work Phone: Renal Epithelial, UA NOT REPORTED 0 /HPF Me [facility] [employer] Work Phone: Specific [place], UA 1.025 High [facility] [employer] Work Phone: Trichomonas, UA NOT REPORTED None [facility] Work Phone: Turbidity UA CLEAR CLEAR [facility] [employer] Work Phone: Urinalysis Comments NOT REPORTED [facility] [employer] Work Phone: Urine Hgb 3+ Abnormal NEGATIVE [facility] [employer] Work Phone: Urobilinogen, Urine Normal Normal [facility] [employer] Work Phone: WBC, UA 10 TO 20 [facility] [employer] Work Phone: Yeast, UA NOT REPORTED None [facility] [employer] Work Phone: [facility] [employer] Work Phone: CHLAMYDIA/GONOCOCCUS RG (SW AB/URINE/PAPon 10-03-2020 Chlamydia trachomatis, RG Negative Normal Negative [facility] Comment on above: Performed By: #### C T/NGNA #### [facility] [address] [place] [address] Keren Josette Neisseria gonorrhoeae, RG Negative Normal Negative [facility] Comment on above: Performed By: #### C T/NGNA #### [facility] [address] [place] [address] Keren Josette ER URINE PROFILEon 1 Bilirubin Ql (U) Negative Normal NEGATIVE [facility] Comment on above: Performed By: #### E RUR #### [facility] [address] [place] [address] Keren Josette Clarity (U) CLEAR Normal CLEAR [facility] Comment on above: Performed By: #### E RUR #### [facility] [address] [place] [address] Keren Josette Color (U) LT. YELLOW Normal YELLOW [facility] Comment on above: Performed By: #### E RUR #### [facility] [address] [place] [address] Keren Josette ERUAHD A micrscopic examination will be performed if indicated. Normal [facility] Comment on above: Performed By: #### E RUR #### [facility] [address] [place] [address] Keren Josette Glucose Ql (U) Negative Normal NEGATIVE [facility] Comment on above: Performed By: #### E RUR #### [facility] [address] [place] [address] Keren Josette Hemoglobin Ql (U) Negative Normal NEGATIVE [facility] Comment on above: Performed By: #### E RUR #### [facility] [address] [place] [address] Keren Josette Ketones Ql (U) Negative Normal NEGATIVE [facility] Comment on above: Performed By: #### E RUR #### [facility] [address] [place] [address] Kerendon Finch LEUKOCYTES Negative Normal NEGATIVE [facility] Comment on above: Performed By: #### E RUR #### [facility] [address] [place], [place] [phone] Keren Finch Nitrite Ql (U) Negative Normal NEGATIVE [facility] Comment on above: Performed By: #### E RUR #### [facility] [address] [place], [place] [phone] Keren Finch pH (U) 7.5 [pH] Normal 5-[address] [facility] Comment on above: Performed By: #### E RUR #### [facility] [address] [place] [address] Keren Finch SPEC GRAVITY 1.015 Normal 1.005-<=1.02 5 [facility] Comment on above: Performed By: #### E RUR #### [facility] [address] [place] [address] Keren Finch UA PROTEIN Negative Normal NEGATIVE/ TRACE [facility] Comment on above: Performed By: #### E RUR #### [facility] [address] [place] [address] Keren Finch UR MICRO IND NOT INDICATED Normal [facility] Comment on above: Performed By: #### E RUR #### [facility] [address] [place] [address] Keren Finch Urobilinogen Qn (U) 0.2 {Geronimo'U}/dL Normal 0.2 - 1. [address] [facility] Comment on above: Performed By: #### E RUR #### [facility] [address] [place] [address] Keren Finch URon 09-29-2020 , QUAL Negative Normal NEGATIVE [facility] Comment on above: Performed By: #### I GABRIELA #### [facility] [address] [place] [address] Keren Finch WET PREPon 09-29-2020 CLUE CELLS SEEN Abnormal NONE SEEN [facility] Comment on above: Performed By: #### W P #### [facility] [address] [place], [place] [phone] Keren Josette FUNGAL ELEMENTS NONE SEEN Normal NONE SEEN The [facility] Comment on above: Performed By: #### W P #### [facility] [address] [place], [place] [address] Keren Josette RBC -WET PREP MODERATE Abnormal NONE SEEN The [facility] Comment on above: Performed By: #### W P #### [facility] [address] [place] [address] Keren Josette TRICHOMONAS NONE SEEN Normal NONE SEEN [facility] Comment on above: Performed By: #### W P #### [facility] [address] [place] [address] Keren Josette WBC- WET PREP MANY Abnormal NONE SEEN [facility] Comment on above: Performed By: #### W P #### [facility] [address] [place], [place] [address] Keren Josette WET PREP BACTERIA MODERATE Abnormal NONE SEEN The [facility] Comment on above: Performed By: #### W P #### [facility] [address] [place] [phone] Keren Josette Vital Signs Date Time Vital Sign Value Performing Clinician Facility 05-04-2024 14:21-0500 Body mass index (BMI) [Ratio] 34.3 kg/m2 Enoch Osmin DO Work Phone: [facility] 05-04-2024 14:-050 Body weight 83.01 kg Enoch Osmin DO Work Phone: [facility] 05-04-2024 14:21-0500 Diastolic blood pressure 72 mm[Hg] Enoch Osmin DO Work Phone: [facility] 05-04-2024 14:21-0500 Systolic blood pressure 120 mm[Hg] Enoch Osmin DO Work Phone: [facility] 04-06-2024 16:19-0500 Body height 155.6 cm Keli Luong CLINICAL SYSTEMS ANALYST Work Phone: [facility] 04-06-2024 16:19-0500 Body mass index (BMI) [Ratio] 35.87 kg/m2 Keli Luong CLINICAL SYSTEMS ANALYST Work Phone: [facility] 04-06-2024 16:19-0500 Body temperature 98.8 [degF] Keli Luong CLINICAL SYSTEMS ANALYST Work Phone: [facility] 04-06-2024 16:19-0500 Body weight 86.82 kg Keli Luong CLINICAL SYSTEMS ANALYST Work Phone: [facility] 04-06-2024 16:19-0500 Diastolic blood pressure 86 mm[Hg] Keli Luong CLINICAL SYSTEMS ANALYST Work Phone: [facility] 04-06-2024 16:19-0500 Heart rate 86 /min Keli Luong CLINICAL SYSTEMS ANALYST Work Phone: [facility] 04-06-2024 16:19-0500 SaO2% (BldA) [Mass fraction] 98 % Keli Luong CLINICAL SYSTEMS ANALYST Work Phone: [facility] 04-06-2024 16:19-0500 Systolic blood pressure 116 mm[Hg] Keli Luong CLINICAL SYSTEMS ANALYST Work Phone: [facility] 03-23-2024 12:14-0500 Body height 155.6 cm Keli Luong CLINICAL SYSTEMS ANALYST Work Phone: [facility] 03-23-2024 12:14-0500 Body mass index (BMI) [Ratio] 35.61 kg/m2 Keli Luong CLINICAL SYSTEMS ANALYST Work Phone: [facility] 03-23-2024 12:14-0500 Body weight 86.18 kg Keli Loung CLINICAL SYSTEMS ANALYST Work Phone: [facility] 03-23-2024 12:14-0500 Diastolic blood pressure 80 mm[Hg] Keli Luong CLINICAL SYSTEMS ANALYST Work Phone: [facility] 03-23-2024 12:14-0500 Heart rate 86 /min Keli Luong CLINICAL SYSTEMS ANALYST Work Phone: [facility] 03-23-2024 12:14-0500 SaO2% (BldA) [Mass fraction] 98 % Keli Luong CLINICAL SYSTEMS ANALYST Work Phone: [facility] 03-23-2024 12:14-0500 Systolic blood pressure 132 mm[Hg] Keli Luong CLINICAL SYSTEMS ANALYST Work Phone: [facility] 02-13-2024 16:53-0400 Body mass index (BMI) [Ratio] 36.29 kg/m2 Ruby Mark CLINICAL SYSTEMS ANALYST Work Phone: [facility] 02-13-2024 16:53-0400 Body temperature 96.91 [degF] Ruby Mark CLINICAL SYSTEMS ANALYST Work Phone: [facility] 02-13-2024 16:53-0400 Body weight 88.54 kg Ruby Mark CLINICAL SYSTEMS ANALYST Work Phone: [facility] 02-13-2024 16:53-0400 Diastolic blood pressure 78 mm[Hg] Ruby Mark CLINICAL SYSTEMS ANALYST Work Phone: [facility] 02-13-2024 16:53-0400 Heart rate 86 /min Ruby Mark CLINICAL SYSTEMS ANALYST Work Phone: [facility] 02-13-2024 16:53-0400 SaO2% (BldA) [Mass fraction] 98 % Ruby Mark CLINICAL SYSTEMS ANALYST Work Phone: [facility] 02-13-2024 16:53-0400 Systolic blood pressure 126 mm[Hg] Ruby Mark CLINICAL SYSTEMS ANALYST Work Phone: [facility] 01-07-2024 18:27-0400 Body height 156.2 cm Keli Luong CLINICAL SYSTEMS ANALYST Work Phone: [facility] 01-07-2024 18:27-0400 Body mass index (BMI) [Ratio] 35.24 kg/m2 Keli Luong CLINICAL SYSTEMS ANALYST Work Phone: [facility] 01-07-2024 18:27-0400 Body weight 86 kg Keli Luong CLINICAL SYSTEMS ANALYST Work Phone: [facility] 01-07-2024 18:27-0400 Diastolic blood pressure 82 mm[Hg] Keli Luong CLINICAL SYSTEMS ANALYST Work Phone: [facility] 01-07-2024 18:27-0400 Heart rate 76 /min Keli Luong CLINICAL SYSTEMS ANALYST Work Phone: [facility] 01-07-2024 18:27-0400 SaO2% (BldA) [Mass fraction] 99 % Keli Luong CLINICAL SYSTEMS ANALYST Work Phone: [facility] 01-07-2024 18:27-0400 Systolic blood pressure 124 mm[Hg] Keli Luong CLINICAL SYSTEMS ANALYST Work Phone: [facility] 05-12-2021 10:35-0500 Body height 154.94 cm Chelo Finleymond Other [employer] Other 05-12-2021 10:35-0500 Body mass index (BMI) [Ratio] 25.69 kg/m2 Chelo Cherri Other [employer] Other 05-12-2021 10:35-0500 Body weight 61.69 kg Chelo Cherri Other [employer] Other 05-12-2021 10:35-0500 Diastolic blood pressure 75 mm[Hg] Chelo Chreri Other [employer] Other 05-12-2021 10:35-0500 Respiratory rate 17 /min Chelo Cherri Other [employer] Other 05-12-2021 10:35-0500 SaO2% (BldA) [Mass fraction] 99 % Chelo Cherri Other [employer] Other 05-12-2021 10:35-0500 Systolic blood pressure 122 mm[Hg] Chelo Cherri Other [employer] Other 11-19-2020 09:14-0400 Body height 154.9 cm Alonso Sykes MD Work Phone: [facility] Work Phone: 11-19-2020 09:14-0400 Body mass index (BMI) [Ratio] 25.13 kg/m2 Alonso Sykes MD Work Phone: [employer] Work Phone: 11-19-2020 09:14-0400 Body temperature 97.9 [degF] Alonso Sykes MD Work Phone: [employer] Work Phone: 11-19-2020 09:14-0400 Body weight 60.33 kg Alonso Sykes MD Work Phone: [employer] Work Phone: 11-19-2020 09:14-0400 Diastolic blood pressure 102 mm[Hg] Alonso Sykes MD Work Phone: [employer] Work Phone: 11-19-2020 09:14-0400 Heart rate 101 /min Alonso Sykes MD Work Phone: [employer] Work Phone: 11-19-2020 09:14-0400 Respiratory rate 18 /min Alonso Sykes MD Work Phone: [employer] Work Phone: 11-19-2020 09:14-0400 SaO2% (BldA) [Mass fraction] 100 % Alonso Sykes MD Work Phone: [employer] Work Phone: 11-19-2020 09:14-0400 Systolic blood pressure 139 mm[Hg] Alonso Sykes MD Work Phone: [employer] Work Phone: Encounters Encounter Date Encounter Type Care Provider Facility Start: 06-23-2024 End: 06-23-2024 ambulatory KELI WHITEMARYJANE [facility] Start: 06-23-2024 End: 06-23-2024 External Result Encounter Keli Luong CLINICAL SYSTEMS ANALYST Work Phone: [facility] Unsolicited Start: 06-23-2024 End: 06-23-2024 External Result Encounter Keli Ag CLINICAL SYSTEMS ANALYST Work Phone: [facility] External [facility] Unsolicited Start: 06-18-2024 End: 06-18-2024 Telephone encounter Ramona Bowles MD Work Phone: [facility] Start: 05-27-2024 End: 05-27-2024 ambulatory [facility] Start: 05-04-2024 End: 05-04-2024 Bamboo flowsheet Enoch Osmin DO Work Phone: [facility] Start: 05-04-2024 End: 05-04-2024 Bamboo flowsheet Enoch Osmin DO Work Phone: [facility] Start: 05-04-2024 End: 05-04-2024 Office outpatient visit 15 minutes Enoch Osmin DO Work Phone: [facility] Comment on above: Medication managemen t Start: 05-04-2024 End: 05-04-2024 ambulatory ENOCH OSMIN Not Available Start: 04-13-2024 End: 04-13-2024 [facility] Start: 04-13-2024 End: 04-13-2024 [facility] Start: 04-07-2024 End: 04-07-2024 Office outpatient visit 15 minutes Enoch Osmin DO Work Phone: [facility] Comment on above: Irregular menstrual cycle; Weight gain Start: 04-06-2024 End: 04-06-2024 Office outpatient visit 15 minutes Keli Luong NP Work Phone: [facility] Comment on above: Fever, unspecified f ever cause (Primary Dx); Viral URI Start: 04-06-2024 End: 04-06-2024 ambulatory KELI LUONG Not Available Start: 04-06-2024 End: 04-06-2024 Bamboo flowsheet Keli Luong CLINICAL SYSTEMS ANALYST Work Phone: [facility] Start: 04-06-2024 End: 04-06-2024 Bamboo flowsheet Keli Luong CLINICAL SYSTEMS ANALYST Work Phone: [facility] Start: 03-23-2024 End: 03-23-2024 Bamboo flowsheet Keli Luong CLINICAL SYSTEMS ANALYST Work Phone: [facility] Start: 03-23-2024 End: 03-23-2024 Bamboo flowsheet Keli Luong CLINICAL SYSTEMS ANALYST Work Phone: [facility] Start: 03-23-2024 End: 03-23-2024 Office outpatient visit 25 minutes Keli Luong CLINICAL SYSTEMS ANALYST Work Phone: [facility] Comment on above: Primary hypertension (CMS/HCC) (Primary Dx); Nonintractable headache, unspecified chronicity pattern, unspecified headache type; Morbid (severe) obesity due to excess calories (CMS/HCC); Body mass index (BMI) 35.0-35.9, adult Start: 03-23-2024 End: 03-23-2024 ambulatory KELI LUONG Not Available Start: 03-18-2024 End: 03-18-2024 ambulatory [facility] Start: 02-13-2024 End: 02-13-2024 ambulatory RUBY MARK Not Available Start: 02-13-2024 End: 02-13-2024 Office outpatient visit 15 minutes Ruby Mark CLINICAL SYSTEMS ANALYST Work Phone: [facility] Comment on above: Dysuria (Primary Dx) ; Urinary tract infection without hematuria, site unspecified Start: 02-13-2024 End: 02-13-2024 Bamboo flowsheet Fern Victor CLINICAL SYSTEMS ANALYST Work Phone: [facility] Start: 02-13-2024 End: 02-13-2024 Bamboo flowsheet Fern Victor CLINICAL SYSTEMS ANALYST Work Phone: [facility] Start: 02-12-2024 End: 02-12-2024 [facility] Start: 01-29-2024 End: 06-18-2024 Telephone encounter Keli Luong NP Work Phone: [facility] Start: 01-08-2024 End: 01-08-2024 [facility] Start: 01-07-2024 End: 01-07-2024 Patient encounter status Keli Luong CLINICAL SYSTEMS ANALYST Work Phone: [facility] Work Phone: Start: 01-07-2024 End: 01-07-2024 Periodic preventive med est patient 18-39 yrs Keli Luong CLINICAL SYSTEMS ANALYST Work Phone: [facility] Comment on above: Panic attacks (CMS/H CC) (Primary Dx); Encounter for wellness examination; Primary hypertension (CMS/HCC); Screening, lipid; Bipolar II disorder (CMS/HCC); Generalized anxiety disorder (CMS/HCC); PCOS (polycystic ovarian syndrome) Start: 01-07-2024 End: 01-07-2024 ambulatory KELI LUONG Not Available Start: 01-07-2024 End: 01-07-2024 Bamboo flowsheet Keli Luong CLINICAL SYSTEMS ANALYST Work Phone: [facility] Start: 01-07-2024 End: 01-07-2024 Bamboo flowsheet Keli Luong CLINICAL SYSTEMS ANALYST Work Phone: [facility] Start: 12-19-2023 End: 12-19-2023 [facility] Start: 11-21-2023 End: 11-21-2023 [facility] Start: 11-08-2023 End: 11-08-2023 [facility] Start: 10-23-2023 End: 10-23-2023 [facility] Start: 10-17-2023 End: 10-17-2023 [facility] Start: 10-02-2023 End: 10-02-2023 ambulatory [facility] Start: 09-09-2023 End: 09-09-2023 ambulatory KELI LUONG Not Available Start: 09-02-2023 End: 09-02-2023 ambulatory [facility] Start: 07-04-2023 End: 07-04-2023 ambulatory ENOCH SOLORIO Not Available Start: 06-04-2023 End: 06-04-2023 ambulatory KELI LUONG Not Available Start: 05-10-2023 End: 05-10-2023 ambulatory CAROLE ROCA Not Available Start: 10-31-2022 End: 10-31-2022 Patient encounter status Keli Luong CLINICAL SYSTEMS ANALYST Work Phone: [facility] Start: 04-30-2022 End: 05-01-2022 ambulatory None Provider Facility:[facility] Start: 03-28-2022 End: 03-29-2022 ambulatory None Provider Facility:[facility] Start: 05-12-2021 End: 05-12-2021 ambulatory Chelo Harley Other [employer] Other Start: 05-12-2021 Office outpatient ne w 20 minutes Chelo Harley [facility] Start: 03-09-2021 End: 03-09-[address] DOCTOR JARAMILLO Facility:[facility] Start: 03-08-2021 End: 03-09-[address] CHAD CENTENO Facility:[facility] Start: 01-17-2021 End: 01-18-2021 ambulatory CARLOS EISENBERG Facility:[facility] Start: 11-19-2020 End: 11-19-2020 Emergency department patient visit ALONSO SYKES [facility] Start: 11-19-2020 End: 11-19-2020 Emergency department patient visit Alonso Sykes MD Work Phone: [facility] ED Comment on above: Lower abdominal pain (Primary Dx); Nausea; Diarrhea, unspecified type Start: 09-29-2020 End: 05-20-2021 ambulatory [facility] Facility:[facility] Procedures Date Procedure Procedure Detail Performing Clinician Start: 06-23-2024 Transferase aspartat e amino ast sgot Keli Ag CLINICAL SYSTEMS ANALYST Work Phone: Start: 04-06-2024 STATUS COVID-19/FLU Maldonado hyde Ag CLINICAL SYSTEMS ANALYST Work Phone: Start: 02-13-2024 End: 02-13-2024 Urnls dip stick/tablet rgnt non-auto w/o micrscp Ruby Mark CLINICAL SYSTEMS ANALYST Work Phone: Start: 11-19-2020 Comprehensive metabo lic panel Alonso Sykes MD Work Phone: Start: 11-19-2020 Urine test visual color cmprsn meths Alonso Sykes MD Work Phone: Start: 11-19-2020 Urnls dip stick/tabl et reagent auto microscopy Alonso Sykes MD Work Phone: Plan of Treatment Date Care Activity Detail Author Start: 07-01-2024 End: 07-01-2024 Patient encounter procedure 07/01/2024 2:00 PM EST Office Visit [facility] [address] [address] Terri Hernandez PA [address] [place], [place] [id number] [facility] Start: 06-29-2024 End: 06-29-2024 Patient encounter procedure 06/29/2024 1:30 PM EST Office Visit [facility] [address] [place] [address] Enoch Solorio DO [address] [place], [place] [id number] [facility] Start: 05-04-2024 End: 05-04-2024 Patient encounter procedure 05/04/2024 2:00 PM EST Office Visit [facility] [address] [place] [address] Enoch Solorio, DO [address] [place] [address] Arrived [facility] Comment on above: Arrived Start: 04-07-2024 End: 04-07-2024 Patient encounter procedure 04/07/2024 9:50 AM EST Office Visit [facility] [address] [phone] Enoch Solorio, DO [address] [place] [address] [facility] Start: 04-06-2024 End: 04-06-2024 Patient encounter procedure 04/06/2024 4:30 PM EST Office Visit [facility] [address] [facility] [place] [phone] Keli Luong NP [address] [place] [address] Arrived [facility] Comment on above: Arrived Start: 02-13-2024 End: 02-13-2024 Patient encounter procedure 02/13/2024 5:30 PM EDT Office Visit [facility] [address] [facility] [place] [phone] Fern Victor, CLINICAL SYSTEMS ANALYST [address] [facility] [place] [place] [address] Arrived [facility] Comment on above: Arrived Start: 02-13-2024 End: 02-12-2025 Bacteria identified in Urine by Culture Urine culture (clean catch) Microbiology Routine Dysuria Expected: 02/13/2024 (Approximate), Expires: 02/12/2025 [facility] Work Phone: Comment on above: Expected: 02/13/2024 (Approximate), Expi res: 02/12/2025 Start: 01-12-2024 Influenza vaccination Influenza Vaccine (#1) [facility] Start: 01-08-2024 End: 01-07-2025 Comprehensive metabolic 2000 panel - Serum or Plasma Comprehensive metabolic panel Lab Routine Encounter for wellness examination Primary hypertension (CMS/HCC) Screening, lipid Expected: 01/08/2024 (Approximate), Expires: 01/07/2025 [facility] Work Phone: Comment on above: Expected: 01/08/2024 (Approximate), Expi res: 01/07/2025 Start: 01-08-2024 End: 01-07-2025 Lipid 1996 panel - Serum or Plasma Lipid panel Lab Routine Encounter for wellness examination Primary hypertension (CMS/HCC) Expected: 01/08/2024 (Approximate), Expires: 01/07/2025 [facility] Comment on above: Expected: 01/08/2024 (Approximate), Expi res: 01/07/2025 Start: 01-07-2024 End: 01-07-2024 Patient encounter procedure 01/07/2024 6:30 PM EDT Office Visit [facility] [address] [place] [phone] Keli Luong NP [address] [place] [address] Arrived [facility] Comment on above: Arrived Start: 01-29-2021 DTaP/Tdap/Td vaccine (7 - Td or Tdap) DTaP/Tdap/Td vaccine (7 - Td or Tdap) [facility] Phone: Start: 01-11-2021 Influenza vaccination Flu vaccine (#1) [facility] Phone: Start: 05-28-2020 COVID-19 Vaccine (2 - Pfizer 2-dose series) COVID-19 Vaccine (2 - Pfizer 2-dose series) [facility] Phone: Start: 11-29-2019 Screening for malignant neoplasm of cervix Cervical cancer screen [facility] Phone: Start: 2014 Screening for Chlamydia trachomatis Chlamydia screen [facility] Phone: Start: 2013 HIV screening HIV screen [facility] Phone: Start: 1998 Hepatitis C screening Hepatitis C screen [facility] Phone: End: 11-19-2020 Gastrointestinal Panel, Molecular Gastrointestinal Panel, Molecular Microbiology Routine One Time for 1 Occurrences starting 11/19/2020 until 11/19/2020 [facility] Work Phone: Comment on above: One Time for 1 Occurrences starting 11/10 until 11/19/2020 Immunizations Immunization Date Immunization Notes Care Provider Fa [facility] 01-29-2020 influenza virus vacc ine, unspecified formulation Keli Luong CLINICAL SYSTEMS ANALYST Work Phone: [facility] Payers Date Payer Category Payer [facility] [id number] 2021 Unknown BCBS BCBS [id number] 2021-Present [phone] [address] [place] [address] [id number] 1998 Unknown [id number] 2.16.840.1.193288.3.579.2.17 3 1998 Unknown [id number] 2.16.840.1.601825.3.579.2.59 3 1998 Unknown [id number] 2.16.840.1.558428.3.579.2.59 3 1998 Unknown [id number] 2.16.840.1.088601.3.579.2.59 3 1998 Unknown [id number] 2.16.840.1.037454.3.579.2.59 3 1998 Unknown [id number] 2.16.840.1.213530.3.579.2.12 59 1998 Unknown [id number] 2.16.840.1.721189.3.579.2.12 59 1998 Unknown [id number] 2.16.840.1.923078.3.579.2.12 59 1998 Unknown [id number] 2.16.840.1.358563.3.579.2.12 59 1998 Unknown [id number] 2.16.840.1.913063.3.579.2.12 1998 Unknown [id number] 2.16.840.1.834717.3.579.2.12 59 1998 Unknown [id number] 2.16.840.1.879210.3.579.2.12 1998 Unknown [id number] 2.16.840.1.606684.3.579.2.12 1998 Unknown [id number] 2.16.840.1.413137.3.579.2.12 1998 Unknown [id number] 2.16.840.1.105774.3.579.2.12 1998 Unknown [id number] 2.16.840.1.358637.3.579.2.12 1998 Unknown [id number] 2.16.840.1.386755.3.579.2.12 1998 Unknown [id number] 2.16.840.1.077530.3.579.2.12 86 1998 Unknown [id number] 2.16.840.1.258226.3.579.2.12 1998 Unknown [id number] 2.16.840.1.029042.3.579.2.12 1998 Unknown [id number] 2.16.840.1.318856.3.579.2.12 86 1998 Unknown [id number] 2.16.840.1.235293.3.579.2.12 1998 Unknown [id number] 2.16.840.1.579791.3.579.2.12 86 1998 Unknown [id number] 2.16.840.1.248887.3.579.2.12 86 1998 Unknown [id number] 2.16.840.1.269419.3.579.2.12 86 1998 Unknown [id number] 2.16.840.1.722642.3.579.2.12 86 1998 Unknown [id number] 2.16.840.1.084490.3.579.2.12 86 1998 Unknown [id number] 2.16.840.1.849314.3.579.2.12 86 1959 Unknown [id number] 1.2.840.418199.1.13.239.2.7. 3.660623.315 1959 Unknown [id number] 1959 Unknown [id number] 1959 Unknown [id number] Social History Date Type Detail Facility Start: 11-19-2020 End: 10-31-2022 Tobacco smoking status [facility] Never smoker [facility] Phone: Start: 11-19-2020 End: 10-31-2022 Tobacco use and exposure Never used [facility] Start: 1998 Sex Assigned At Not on file [facility] Phone: Exposure to SARS-CoV -2 (event) Not sure [facility] Start: 01-08-2024 End: 04-06-2024 Alcoholic beverage intake Current drinker of alcohol (finding) [facility] Start: 01-08-2024 End: 03-23-2024 History of Social function [facility] Start: 01-08-2024 End: 03-23-2024 Tobacco use panel [facility] Start: 09-09-2023 Alcohol Comment occasional alcohol, [facility] Start: 02-13-2024 End: 03-23-2024 Alcoholic beverage intake Ex-drinker (finding) [facility] Start: 04-06-2024 Alcohol Comment occasional alc ohol, caffeine intake:300 mg daily [facility] Clinical Notes 01-07-2024 to 06-18-2024 Telephone Encounter - Jeff Teresa - 06/18/2024 3:19 PM ESTTelephone Encounter - Jeff Moore - 06/18/2024 3:19 PM José Miguel Solorio, - 05/04/2024 2:00 PM Mc Russell LPN - 04/07/2024 9:50 AM EST Note Date & Type Note Facility 06-18-2024 Telephone encounter Note Form atting of this note might be different from the original. Salena called - asked for a lab order to be put in to test her Liver Enzymes , for a recheck . Ty Please call her when order has been put in , [facility] 06-18-2024 Miscellaneous Notes Formattin g of this note might be different from the original. Salena called - asked for a lab order to be put in to test her Liver Enzymes , for a recheck . Ty Please call her when order has been put in , documented in this encounter [facility] 05-04-2024 History of Presen t illness Narrative Reason for Appointment: Patient ID: Salena Rodriguez is a 23 y.o. female who presents for Weight Management (Pt present today for an [facility] f/up visit. ) Patient presents today for Weight Management Consult. MEDICATIONS Current Outpatient Medications Medication Instructions ALPRAZolam (XANAX) 0.25 mg, Nightly PRN busPIRone (BUSPAR) 10 mg, 3 times daily lamoTRIgine (LAMICTAL) 50 mg, Daily RT metFORMIN (GLUCOPHAGE) 500 mg, Oral, Daily with breakfast metroNIDAZOLE (FLAGYL) 500 mg, Oral, 2 times daily, Do not drink alcohol while taking this medication propranolol LA (INDERAL LA) 80 mg, Oral, Daily, Do not crush, chew, or split. vilazodone (VIIBRYD) 20 mg, Daily ALLERGIES Allergies Allergen Reactions Bactrim [Sulfamethoxazole-Trimethoprim] Hives Cephalexin Hives Keflex [Cephalexin] Hives Penicillins Hives Sulfamethoxazole-Trimethoprim Hives Wellbutrin [Bupropion] Suicidal ideations Sulfa Antibiotics Rash PROBLEMS Active Ambulatory Problems Diagnosis Date Noted Primary hypertension (CMS/HCC) 10/31/2022 Obsessive-compulsive disorder (CMS/HCC) 10/31/2022 Anxiety 10/31/2022 PCOS (polycystic ovarian syndrome) 07/04/2023 Hormone disorder 07/04/2023 Missed menses 07/04/2023 Bipolar II disorder (CMS/HCC) 09/02/2023 Panic disorder (CMS/HCC) 09/02/2023 Resolved Ambulatory Problems Diagnosis Date Noted Encounter for wellness examination 10/31/2022 Past Medical History: Diagnosis Date Bipolar 2 disorder (CMS/HCC) Breast discharge Breast tenderness in female Hypertension (CMS/HCC) OCD (obsessive compulsive disorder) (CMS/[facility]) HISTORY PAST MEDICAL HISTORY SOCIAL HISTORY Past Medical History: Diagnosis Date Anxiety Bipolar 2 disorder (CMS/HCC) Breast discharge Breast tenderness in female Hypertension ([facility]/HCC) OCD (obsessive compulsive disorder) ([facility]) Primary hypertension (CMS/HCC) 10/31/2022 Social History Tobacco Use Smoking status: Never Smokeless tobacco: Never Vaping Use Vaping status: Never Used Substance Use Topics Alcohol use: Yes Comment: occasional alcohol, caffeine intake:300 mg daily Drug use: Never FAMILY HISTORY Family History Problem Relation Name Age of Onset Hypertension Mother Hypertension Father Mental illness Mother Cancer Father No Known Problems Sister No Known Problems Brother SURGICAL HISTORY Past Surgical History: Procedure Laterality Date ADENOIDECTOMY CHOLECYSTECTOMY DILATION AND CURETTAGE OF UTERUS 02/01/2023 NASAL SEPTUM SURGERY [place] TONSILLECTOMY & ADENOIDECTOMY AGE 10/> TONSILLECTOMY REVIEW OF SYSTEMS Review of Systems: Review of Systems All other systems reviewed and are negative. OBJECTIVE Objective: OBGyn Exam Vitals: Estimated body mass index is 34.3 kg/m as calculated from the following: Height as of 04/06/24: 5' 1.25 . Weight as of this encounter: 183 lb. BP: 120/72 Patient's last menstrual period was 05/01/2024 (approximate). ASSESSMENT & PLAN ICD-10-CM 1. Medication management Z79.899 Patient present for follow up Ozempic and desires to continue medication through [facility]. Medication will be sent to [facility]. Pt to continue metformin, rto for yearly exam Documented by Vero Lam LPN on behalf of: Enoch Solorio DO documented in this encounter [facility] 04-07-2024 History of Presen t illness Narrative Reason for Appointment: Patient ID: Salena Rodriguez is a 23 y.o. female who presents for No chief complaint on file. Patient presents today for Acute Visit. and Consult appointment. MEDICATIONS Current Outpatient Medications Medication Instructions ALPRAZolam (XANAX) 0.25 mg, Nightly PRN busPIRone (BUSPAR) 10 mg, 3 times daily lamoTRIgine (LAMICTAL) 50 mg, Daily RT metFORMIN (GLUCOPHAGE) 500 mg, Oral, Daily with breakfast propranolol LA (INDERAL LA) 80 mg, Oral, Daily, Do not crush, chew, or split. vilazodone (VIIBRYD) 20 mg, Daily ALLERGIES Allergies Allergen Reactions Bactrim [Sulfamethoxazole-Trimethoprim] Hives Cephalexin Hives Keflex [Cephalexin] Hives Penicillins Hives Sulfamethoxazole-Trimethoprim Hives Wellbutrin [Bupropion] Suicidal ideations Sulfa Antibiotics Rash PROBLEMS Active Ambulatory Problems Diagnosis Date Noted Primary hypertension (CMS/HCC) 10/31/2022 Obsessive-compulsive disorder (CMS/HCC) 10/31/2022 Anxiety 10/31/2022 PCOS (polycystic ovarian syndrome) 07/04/2023 Hormone disorder 07/04/2023 Missed menses 07/04/2023 Bipolar II disorder (CMS/HCC) 09/02/2023 Panic disorder (CMS/HCC) 09/02/2023 Resolved Ambulatory Problems Diagnosis Date Noted Encounter for wellness examination 10/31/2022 Past Medical History: Diagnosis Date Bipolar 2 disorder (CMS/HCC) Breast discharge Breast tenderness in female Hypertension (CMS/HCC) OCD (obsessive compulsive disorder) (CMS/HCC) HISTORY PAST MEDICAL HISTORY SOCIAL HISTORY Past Medical History: Diagnosis Date Anxiety Bipolar 2 disorder (CMS/HCC) Breast discharge Breast tenderness in female Hypertension (CMS/HCC) OCD (obsessive compulsive disorder) (CMS/HCC) Primary hypertension (CMS/HCC) 10/31/2022 Social History Tobacco Use Smoking status: Never Smokeless tobacco: Never Vaping Use Vaping status: Never Used Substance Use Topics Alcohol use: Yes Comment: occasional alcohol, caffeine intake:300 mg daily Drug use: Never FAMILY HISTORY Family History Problem Relation Name Age of Onset Hypertension Mother Hypertension Father Mental illness Mother Cancer Father No Known Problems Sister No Known Problems Brother SURGICAL HISTORY Past Surgical History: Procedure Laterality Date ADENOIDECTOMY CHOLECYSTECTOMY DILATION AND CURETTAGE OF UTERUS 02/01/2023 NASAL SEPTUM SURGERY [place] TONSILLECTOMY & ADENOIDECTOMY AGE 10/> TONSILLECTOMY REVIEW OF SYSTEMS Review of Systems: Review of Systems Constitutional: Negative. HENT: Negative. Eyes: Negative. Respiratory: Negative. Cardiovascular: Negative. Gastrointestinal: Negative. Genitourinary: Positive for menstrual problem. Musculoskeletal: Negative. Skin: Negative. Neurological: Negative. All other systems reviewed and are negative. Hematological: Negative. Endocrine: Negative. Allergic/Immunologic: Negative. OBJECTIVE Objective: Physical Exam Constitutional: Appearance: Normal appearance. She is well-developed. Cardiovascular: Rate and Rhythm: Normal rate and regular rhythm. Pulmonary: Effort: Pulmonary effort is normal. Breath sounds: Normal breath sounds. Abdominal: General: Bowel sounds are normal. There is no distension. Palpations: Abdomen is soft. Tenderness: There is no abdominal tenderness. There is no guarding or rebound. Musculoskeletal: General: No swelling. Normal range of motion. Right lower leg: No edema. Left lower leg: No edema. Neurological: Mental Status: She is alert and oriented to person, place, and time. Skin: General: Skin is warm and dry. Psychiatric: Mood and Affect: Mood normal. Behavior: Behavior normal. Vitals and nursing note reviewed. Exam conducted with a civil structural engineer present. Vitals: Estimated body mass index is 35.87 kg/m as calculated from the following: Height as of 04/06/24: 5' 1.25 . Weight as of 04/06/24: 191 lb 6.4 oz. BP: No LMP recorded. ASSESSMENT & PLAN ICD-10-CM 1. Irregular menstrual cycle N92.6 2. Weight gain R63.5 Pt presents to discuss roberto gain and irregular cycles. Pt cannot take Adipex d/t blood pressure medication. Pt to start Ozempic compounded through [facility], medication faxed to pharmacy. Pt to return in four weeks to review weight loss. Documented by Josette Rusesll LPN on behalf of: Enoch Solorio DO documented in this encounter [facility] 04-06-2024 History of Presen t illness Narrative Images from the original note were not included. Salena Rodriguez is a 23 y.o. female presents with chief complaint of Flu Symptoms HPI: HPI History of Present Illness The patient presents for evaluation of ear pain. She is accompanied by an adult female. She reports experiencing ear pain, congestion, and extreme body aches. She has been self-medicating with Motrin and Tylenol every 6 hours. SUBJECTIVE: MEDICATIONS: Current Outpatient Medications Medication Instructions ALPRAZolam (XANAX) 0.25 mg, Nightly PRN busPIRone (BUSPAR) 10 mg, 3 times daily lamoTRIgine (LAMICTAL) 50 mg, Daily RT metFORMIN (GLUCOPHAGE) 500 mg, Oral, Daily with breakfast propranolol LA (INDERAL LA) 80 mg, Oral, Daily, Do not crush, chew, or split. vilazodone (VIIBRYD) 20 mg, Daily REVIEW OF SYMPTOMS: Review of Systems Constitutional: Positive for chills, fatigue and fever. HENT: Positive for congestion, ear pain and sinus pressure. Negative for ear discharge and sinus pain. Respiratory: Positive for cough. Negative for shortness of breath and wheezing. All other systems reviewed and are negative. OBJECTIVE: Visit Vitals BP 116/86 (BP Location: Left arm, Patient Position: Sitting, BP Cuff Size: Large adult) Pulse 86 Temp 98.8 F (Tympanic) Ht 5' 1.25 Wt 191 lb 6.4 oz SpO2 98% BMI 35.87 kg/m OB Status Unknown Smoking Status Never BSA 1.94 m Physical Exam Vitals reviewed. Constitutional: Appearance: She is obese. HENT: Head: Normocephalic and atraumatic. Right Ear: Tympanic membrane normal. Left Ear: Tympanic membrane normal. Nose: Mucosal edema and congestion present. Mouth/Throat: Mouth: Mucous membranes are moist. Pharynx: Postnasal drip present. Eyes: Pupils: Pupils are equal, round, and reactive to light. Cardiovascular: Rate and Rhythm: Normal rate and regular rhythm. Pulses: Normal pulses. Heart sounds: Normal heart sounds. Pulmonary: Effort: Pulmonary effort is normal. Breath sounds: Normal breath sounds. Musculoskeletal: Cervical back: Normal range of motion and neck supple. Skin: General: Skin is warm and dry. Capillary Refill: Capillary refill takes less than 2 seconds. Findings: No rash. Neurological: General: No focal deficit present. Mental Status: She is alert and oriented to person, place, and time. ASSESSMENT AND PLAN: Assessment/Plan Diagnoses and all orders for this visit: Fever, unspecified fever cause - STATUS COVID-19/FLU Viral URI -Most likely viral in nature, will need to run its course. Educated patient viral infections such as colds/flus do not respond to abx and typically do not begin to improve until 7-10 days into the illness. Discussed symptomatic treatment with patient. Humidifier at bedside to moisten area. Push fluids. Rest. Good handwashing. Follow up if symptoms do not improve. To ER for markedly worsening symptoms. documented in this encounter [facility] 03-23-2024 History of Presen t illness Narrative Images from the original note were not included. Salena Rodriguez is a 23 y.o. female presents with chief complaint of ER follow up HPI: HPI Presents to the office for ER follow up. She went to the ER with complaints of a headache, was having projectile vomiting, was given zofran and tylenol. Had a head CT which was negative. Discharged with no medications. Has been checking her blood pressures at home, readings have been 140's or higher. Flowsheet Row Office Visit from 03/23/2024 in [facility] with Keli Luong NP Hospital Information ED, [facility] Discharge? ED Patient has been contacted within 1 week of being seen in the ED Yes Diagnosis headache Discharge Date 03/14/24 Discharged To: Home Setting Discharge Hospital Other (use comment) [[facility]] Engagement Medications Discharge medications reviewed and reconciled from hospital? Yes Is the patient having any side effects they believe may be caused by any medication additions or changes? No Does the patient have all medications ordered at discharge? Not applicable Appointments Does the patient have a primary care provider? Yes Self Management Patient Teaching Wrap Up SUBJECTIVE: MEDICATIONS: Current Outpatient Medications Medication Instructions ALPRAZolam (XANAX) 0.25 mg, Nightly PRN busPIRone (BUSPAR) 10 mg, 3 times daily lamoTRIgine (LAMICTAL) 50 mg, Daily RT metFORMIN (GLUCOPHAGE) 500 mg, Oral, Daily with breakfast propranolol LA (Inderal LA) 60 MG 24 hr capsule TAKE 1 CAPSULE (60 MG) BY MOUTH IN THE MORNING DO NOT CRUSH,CHEW,OR SPIT vilazodone (VIIBRYD) 20 mg, Daily I have reviewed and reconciled the history and medication list with the patient today. REVIEW OF SYMPTOMS: Review of Systems Constitutional: Negative. HENT: Negative. Eyes: Negative. Respiratory: Negative. Cardiovascular: Negative. Gastrointestinal: Negative. Genitourinary: Negative. Musculoskeletal: Negative. Skin: Negative. Neurological: Positive for headaches. OBJECTIVE: Visit Vitals BP 132/80 Pulse 86 Ht 5' 1.25 Wt 190 lb SpO2 98% BMI 35.61 kg/m OB Status Unknown Smoking Status Never BSA 1.93 m Physical Exam Vitals reviewed. Constitutional: Appearance: She is obese. HENT: Head: Normocephalic and atraumatic. Nose: Nose normal. Mouth/Throat: Mouth: Mucous membranes are moist. Eyes: Pupils: Pupils are equal, round, and reactive to light. Cardiovascular: Rate and Rhythm: Normal rate and regular rhythm. Pulses: Normal pulses. Heart sounds: Normal heart sounds. Pulmonary: Effort: Pulmonary effort is normal. Breath sounds: Normal breath sounds. Musculoskeletal: Cervical back: Normal range of motion and neck supple. Right lower leg: No edema. Left lower leg: No edema. Skin: General: Skin is warm and dry. Capillary Refill: Capillary refill takes less than 2 seconds. Findings: No rash. Neurological: General: No focal deficit present. Mental Status: She is alert and oriented to person, place, and time. ASSESSMENT AND PLAN: Assessment/Plan Diagnoses and all orders for this visit: Primary hypertension (CMS/HCC) - propranolol LA (Inderal LA) 80 MG 24 hr capsule; Take 1 capsule (80 mg) by mouth Daily Do not crush, chew, or split. -Increase propranolol, check home readings and call office in 1 week with results. She is agreeable to this plan. Discussed current management plan. Goal BP less then 130/80. Discussed heart healthy diet, increase fruits and vegetables, limit salt intake. Encouraged increase physical exercise, try to be as active as possible at least 150 mins per week. Importance of weight management with a goal BMI less then 27 discussed. Discussed complications of uncontrolled blood pressure. Patient instructed to monitor BP's 1-2 times a week, keep a log, and bring to next visit. Barriers to care and medication compliance discussed. Patient voices understanding of meds. Nonintractable headache, unspecified chronicity pattern, unspecified headache type -Could be related to her BP, will increase her propranolol which should help with her headaches as well. Morbid (severe) obesity due to excess calories (CMS/HCC) Body mass index (BMI) 35.0-35.9, adult documented in this encounter [facility] 02-13-2024 History of Presen t illness Narrative Images from the original note were not included. Salena Rodriguez is a 23 y.o. female presents with chief complaint of UTI HPI: Passed two days pt has been feeling nausea, irratable, cramping by bladder, and brain fog. SUBJECTIVE: MEDICATIONS: ALLERGIES Current Outpatient Medications Medication Instructions ALPRAZolam (XANAX) 0.25 mg, Oral, Nightly PRN busPIRone (BUSPAR) 10 mg, Oral, 3 times daily lamoTRIgine (LAMICTAL) 25 mg, Oral, Daily RT metFORMIN (GLUCOPHAGE) 500 mg, Oral, Daily with breakfast propranolol LA (Inderal LA) 60 MG 24 hr capsule TAKE 1 CAPSULE (60 MG) BY MOUTH IN THE MORNING DO NOT CRUSH,CHEW,OR SPIT vilazodone (VIIBRYD) 20 mg, Oral, Daily Allergies Allergen Reactions Bactrim [Sulfamethoxazole-Trimethoprim] Hives Cephalexin Hives Keflex [Cephalexin] Hives Penicillins Hives Sulfamethoxazole-Trimethoprim Hives Wellbutrin [Bupropion] Suicidal ideations Sulfa Antibiotics Rash PAST MEDICAL HISTORY: SOCIAL HISTORY SURGICAL HISTORY: Past Medical History: Diagnosis Date Anxiety Bipolar 2 disorder (CMS/HCC) Breast discharge Breast tenderness in female Hypertension (CMS/HCC) OCD (obsessive compulsive disorder) (CMS/HCC) Primary hypertension (CMS/[facility]) 10/31/2022 Social History Tobacco Use Smoking status: Never Smokeless tobacco: Never Vaping Use Vaping status: Never Used Substance Use Topics Alcohol use: Not Currently Comment: occasional alcohol, Drug use: Never Past Surgical History: Procedure Laterality Date ADENOIDECTOMY CHOLECYSTECTOMY DILATION AND CURETTAGE OF UTERUS 02/01/2023 NASAL SEPTUM SURGERY [place] TONSILLECTOMY & ADENOIDECTOMY AGE 10/> TONSILLECTOMY REVIEW OF SYMPTOMS: Review of Systems Genitourinary: Positive for difficulty urinating. All other systems reviewed and are negative. OBJECTIVE: Vitals: 02/13/24 1653 Temp: 96.9 F Physical Exam Vitals and nursing note reviewed. Constitutional: Appearance: Normal appearance. HENT: Head: Normocephalic and atraumatic. Pulmonary: Effort: Pulmonary effort is normal. Abdominal: General: Abdomen is flat. Bowel sounds are normal. Palpations: Abdomen is soft. Comments: No cva tenderness Musculoskeletal: General: Normal range of motion. Skin: General: Skin is warm and dry. Neurological: Mental Status: She is alert. ASSESSMENT AND PLAN: Assessment/Plan Diagnoses and all orders for this visit: Dysuria - POCT urinalysis dipstick manually resulted - Urine culture (clean catch); Future - POCT , urine Urinary tract infection without hematuria, site unspecified - nitrofurantoin, macrocrystal-monohydrate, (Macrobid) 100 MG capsule; Take 1 capsule (100 mg) by mouth in the morning and 1 capsule (100 mg) before bedtime. Do all this for 7 days. Cover with macrobid. Increase fluids rest. Culture to lab FU if not improved No follow-ups on file. documented in this encounter [facility] 01-29-2024 Telephone encounter Note Form atting of this note might be different from the original. Called pt, she's agreeable, will do as directed. [facility] 01-29-2024 Miscellaneous Notes Formattin g of this note might be different from the original. Called pt, she's agreeable, will do as directed. Pt calling, she had a drug test for new job and she said they said there was traces of protein and she is wondering if this could be from metformin? Also said her bp is running high normally runs 120/80 but is now 136/96 and she did start new med from psych lamictal and she's wondering if this could cause the bp rise. She said she's currently at 25mg but her psych did say they would be upping and she wanted to report this beforehand. documented in this encounter [facility] 01-29-2024 Telephone encounter Note Form atting of this note might be different from the original. Pt calling, she had a drug test for new job and she said they said there was traces of protein and she is wondering if this could be from metformin? Also said her bp is running high normally runs 120/80 but is now 136/96 and she did start new med from psych lamictal and she's wondering if this could cause the bp rise. She said she's currently at 25mg but her psych did say they would be upping and she wanted to report this beforehand. [facility] 01-07-2024 History of Presen t illness Narrative Salena Rodriguez is a 23 y.o. female presents with chief complaint of Annual Exam HPI: HPI Presents to the office for annual wellness. Applied for a new job at [employer]. Switched psych providers. Was recently diagnosed with bipolar disorder. SUBJECTIVE: MEDICATIONS: Current Outpatient Medications Medication Instructions ALPRAZolam (XANAX) 0.25 mg, Oral, Nightly PRN busPIRone (BUSPAR) 10 mg, Oral, 3 times daily metFORMIN (GLUCOPHAGE) 500 mg, Oral, Daily with breakfast propranolol LA (Inderal LA) 60 MG 24 hr capsule TAKE 1 CAPSULE (60 MG) BY MOUTH IN THE MORNING DO NOT CRUSH,CHEW,OR SPIT vilazodone (VIIBRYD) 20 mg, Oral, Daily REVIEW OF SYMPTOMS: Review of Systems OBJECTIVE: Visit Vitals BP 124/82 (BP Location: Right arm, Patient Position: Sitting, BP Cuff Size: Adult) Pulse 76 Ht 5' 1.5 Wt 189 lb 9.6 oz SpO2 99% BMI 35.24 kg/m OB Status Unknown Smoking Status Never BSA 1.93 m Physical Exam Vitals reviewed. Constitutional: Appearance: She is obese. HENT: Head: Normocephalic and atraumatic. Right Ear: Tympanic membrane normal. Left Ear: Tympanic membrane normal. Nose: Nose normal. Mouth/Throat: Mouth: Mucous membranes are moist. Eyes: Extraocular Movements: Extraocular movements intact. Pupils: Pupils are equal, round, and reactive to light. Cardiovascular: Rate and Rhythm: Normal rate and regular rhythm. Pulses: Normal pulses. Heart sounds: Normal heart sounds. Pulmonary: Effort: Pulmonary effort is normal. Breath sounds: Normal breath sounds. Abdominal: General: Bowel sounds are normal. Palpations: Abdomen is soft. Tenderness: There is no abdominal tenderness. Musculoskeletal: General: Normal range of motion. Cervical back: Normal range of motion and neck supple. Right lower leg: No edema. Left lower leg: No edema. Skin: General: Skin is warm and dry. Capillary Refill: Capillary refill takes less than 2 seconds. Findings: No rash. Neurological: General: No focal deficit present. Mental Status: She is alert and oriented to person, place, and time. ASSESSMENT AND PLAN: Assessment/Plan Diagnoses and all orders for this visit: Panic attacks (CMS/HCC) -Managed by psych Encounter for wellness examination - Comprehensive metabolic panel; Future - Lipid panel; -Wellness performed at today. Height, weight, BMI, problem list, and immunizations records reviewed. Dental care discussed with patient. Encouraged annual vision screenings and semi-annual dental care. Encouraged healthy eating habits, limit or eliminate junk food and sources of excess calories. Encouraged regular periods of exercise, 150 minutes of exercise weekly or amount appropriate to current level of function. Discussed family/friend/social support and importance of maintaining emotional connections. Follow up annually and as needed. Primary hypertension (CMS/HCC) - Comprehensive metabolic panel; Future - Lipid panel; Future -Discussed current management plan. Goal BP less then 130/80. Discussed heart healthy diet, increase fruits and vegetables, limit salt intake. Encouraged increase physical exercise, try to be as active as possible at least 150 mins per week. Importance of weight management with a goal BMI less then 27 discussed. Discussed complications of uncontrolled blood pressure. Patient instructed to monitor BP's 1-2 times a week, keep a log, and bring to next visit. Barriers to care and medication compliance discussed. Patient voices understanding of meds. Screening, lipid - Comprehensive metabolic panel; Future Bipolar II disorder (CMS/HCC) -Managed by psych Generalized anxiety disorder (CMS/HCC) -Managed by psych PCOS (polycystic ovarian syndrome) -Managed by OBGYN documented in this encounter [facility] Evaluation note Diagnosis Lower abdominal pain- Primary Abdominal pain, other specified site Nausea Nausea alone Diarrhea, unspecified type documented in this encounter [facility] Phone: [facility] Other Evaluation note* Diagnosis Dysuria- Primary Urinary tract infection without hematuria, site unspecified [facility] Diagnosis Primary hypertension (CMS/HCC)- Primary Unspecified essential hypertension Nonintractable headache, unspecified chronicity pattern, unspecified headache type Morbid (severe) obesity due to excess calories (CMS/HCC) Body mass index (BMI) 35.0-35.9, adult [facility] Diagnosis Fever, unspecified fever cause- Primary Viral URI Acute upper respiratory infections of unspecified site [facility] Diagnosis Irregular menstrual cycle Weight gain Other symptoms concerning nutrition, metabolism, and development [facility]* Diagnosis Panic attacks (CMS/HCC)- Primary Panic disorder without agoraphobia Encounter for wellness examination Primary hypertension (CMS/HCC) Unspecified essential hypertension Screening, lipid Bipolar II disorder (CMS/HCC) Other bipolar disorders Generalized anxiety disorder (CMS/HCC) Generalized anxiety disorder PCOS (polycystic ovarian syndrome) Polycystic ovaries [facility] Diagnosis Medication management [facility] N[facility] - [facility] Other [facility] Discharge instructions* Instructions* Alonso Sykes MD - 11/19/2020 Please drink plenty of fluids return to the ER for any escalation of your symptoms. Please follow-up with your PCP as needed. * Attachments The following attachments cannot be sent through Care Everywhere. 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 Pt states she has possible worm [place] Reason Comments UTI Reason Comments Flu Symptoms Reason Comments Annual Exam Reason Comments Weight Management Pt present today for an Ozempic f/up visit. Ordered Prescriptions (unrec ognized section and content) Prescription Sig Dispensed Refills Start Date End Da te loperamide (RA ANTI-DIARRHEAL) 2 MG capsule Take 1 capsule by mouth 4 times daily as needed for Diarrhea 12 capsule 0 11/19/2020 11/29/2020 INFORMATION SOURCE (unrecogn ized section and content) DATE CREATED AUTHOR 11/20/2020 [facility] DATE CREATED AUTHOR AUTHOR'S ORGANIZ ATION 09/06/2021 [facility] DATE CREATED AUTHOR AUTHOR'S ORGANIZ ATION 05/04/2022 [facility] DATE CREATED AUTHOR AUTHOR'S ORGANIZ ATION 05/06/2024 [facility] EPIC DATE CREATED AUTHOR AUTHOR'S ORGANIZ ATION 06/25/2024 [facility] Care Teams (unrecognized sec tion and content) Medical Staff Manager Relationship Specialty Start Date End Date Ramona Bowles MD [address] [place] [address] PCP - General Family Medicine 10/23/22 Ramona Bowles MD [address] [place] [address] PCP - [employer] 12/11/22 Keli Luong NP [address] [place] [address] Nurse Practitioner Family Medicine 10/23/22 Medical Staff Manager Relationship Specialty Start Date End Date Ramona Bowles MD [address] [place] [address] PCP - General Family Medicine 10/23/22 Ramona Bowles MD [address] [place] [address] PCP - [employer] 12/11/22 Keli Luong NP [address] [place] [address] Nurse Practitioner Family Medicine 10/23/22 Medical Staff Manager Relationship Specialty Start Date End Date Ramona Bowles MD [address] [place] [address] PCP - General Family Medicine 10/23/22 Keli Luong NP [address] [place] [address] PCP - [employer] 02/11/24 Keli Luong NP [address] [place] [address] Nurse Practitioner Family Medicine 10/23/22 Medical Staff Manager Relationship Specialty Start Date End Date Ramona Bowles MD [address] [place] [address] PCP - General Family Medicine 10/23/22 Keli Luong NP [address] [place] [address] PCP - [employer] 02/11/24 Keli Luong NP [address] [place] [address] Nurse Practitioner Family Medicine 10/23/22 Medical Staff Manager Relationship Specialty Start Date End Date Ramona Bowles MD [address] [place] [address] PCP - General Family Medicine 10/23/22 Keli Luong NP [address] [place] [address] PCP - [employer] 02/11/24 Keli Luong NP [address] [place] [address] Nurse Practitioner Family Medicine 10/23/22 Medical Staff Manager Relationship Specialty Start Date End Date Ramona Bowles MD [address] [place] [address] PCP - General Family Medicine 10/23/22 Keli Luong NP [address] [place] [address] PCP - [employer] 02/11/24 Keli Luong NP [address] [place] [address] Nurse Practitioner Family Medicine 10/23/22 Medical Staff Manager Relationship Specialty Start Date End Date Ramona Bowles MD [address] [place] [address] PCP - General Family Medicine 10/23/22 Keli Luong NP [address] [place] [address] PCP - [employer] 02/11/24 Keli Luong NP [address] [place] [address] Nurse Practitioner Family Medicine 10/23/22 Medical Staff Manager Relationship Specialty Start Date End Date Ramona Bowles MD [address] [place] [address] PCP - General Family Medicine 10/23/22 Ramona Bowles MD [address] [place] [address] PCP - [employer] 12/11/22 Keli Luong NP [address] [place] [address] Nurse Practitioner Family Medicine 10/23/22 Medical Staff Manager Relationship Specialty Start Date End Date Ramona Bowles MD [address] [place] [address] PCP - General Family Medicine 10/23/22 Ramona Bowles MD [address] [place] [address] PCP - [employer] 12/11/22 Keli Luong NP [address] [place] [address] Nurse Practitioner Family Medicine 10/23/22 Medical Staff Manager Relationship Specialty Start Date End Date Ramona Bowles MD [address] [place] [address] PCP - General Family Medicine 10/23/22 Keli Luong NP [address] [place] [address] PCP - [employer] 02/11/24 Keli Loung NP [address] [place] [address] Nurse Practitioner Family Medicine 10/23/22 Medical Staff Manager Relationship Specialty Start Date End Date Ramona Bowles MD [address] [place] [address] PCP - General Family Medicine 10/23/22 Keli Luong, SHANTI [address] [place] [address] PCP - [employer] 02/11/24 Keli Luong NP [address] [place] [address] Nurse Practitioner Family Medicine 10/23/22 Medical Staff Manager Relationship Specialty Start Date End Date Ramona Bowles MD [address] [place] [address] PCP - General Family Medicine 10/23/22 Ramnoa Bowles MD [address] [place] [address] PCP - [employer] 12/11/22 Keli Luong NP [address] [place] [facility] [place] [address] PCP - [employer] 02/11/24 Keli Luong NP [address] [facility] [place] [address] Nurse Practitioner Family Medicine 10/23/22 FOR RECORDS PERTAINING TO PATIENTS WHO ARE OR HAVE BEEN ENROLLED IN A CHEMICAL DEPENDENCY/SUBSTANCEABUSE PROGRAM, SOME INFORMATION MAY BE OMITTED. This clinical summary was aggregated from multiple sources. Caution should be exercised in using it in the provision of clinical care. This summary normalizes information from multiple sources, and as a consequence, information in this document may materially change the coding, format and clinical context of patient data. In addition, data may be omitted in some cases. CLINICAL DECISIONS SHOULD BE BASED ON THE PRIMARY CLINICAL RECORDS. [employer] provides no warranty or guarantee of the accuracy or completeness of information in this document.
== END 2024-07-01 21:50 | disposition home or self-care (01) ==
LOC: LAB 21:49
PROVIDERS: Visit Provider Physician Assistant
DX: Z01.419 Encounter for gynecological examination (general) (routine) without abnormal findings (principal)
CPT/HCPCS: 88175